=== PATIENT | female | born 1975 ===

== ENCOUNTER 2021-08-20 04:55 | Emergency (ER) | payer OTHER, SELFPAY ==
--- NOTE | 2021-08-20 | ECG_ITS ---
Test Reason : PALPATATIONS Blood Pressure : / mmHG Vent. Rate : 077 BPM Atrial Rate : 077 BPM P-R Int : 150 ms QRS Dur : 090 ms QT Int : 390 ms P-R-T Axes : 035 010 011 degrees QTc Int : 441 ms Normal sinus rhythm Cannot rule out Anterior infarct (cited on or before 30-SEP-2019) Abnormal ECG When compared with ECG of 30-SEP-2019 18:14, No significant change was found Referred By: Generic ED Physician Electronically Signed By:Alberto Patel
[2021-08-20 05:15] VITALS: BP 142/82; PULSE 78; RESP 16; TEMP 36.4; O2SAT 99; BMI 42.5
--- NOTE | 2021-08-20 05:58 | ED_ITS ---
HPI - General Adult General Chief complaint: Extremity Problem Stated complaint: leg and chest pain rapid heart rate Time Seen by Provider: 08/20/21 05:33 Source: patient Mode of arrival: ambulatory Limitations: no limitations History of Present Illness HPI narrative: Patient comes to the emergency room complaining of palpitations. Patient states that earlier today she had restless legs, started walking around her house and then notice that her heart rate was fast, had palpitations. Patient with her Fitbit watch on which showed a heart rate of 140. Patient states that by the time she arrived to the emergency room most of her symptoms had resolved. Patient denies any chest pain at this time, no shortness of breath. Related Data Allergies Allergy/AdvReac Type Severity Reaction Status Date / Time No Known Allergies Allergy Unverified 06/01/20 19:48 [No Known Allergies*] Review of Systems Review of Systems: Constitutional : No Weight loss, No Fever, No Chills, No Night Sweats, No Fatigue, No Malaise ENT/Mouth : No Hearing loss, No Ear Pain, No Nasal Congestion, No Sinus Pain, No Hoarseness, No sore throat, No Rhinorrhea, No Swallowing Difficulty Eyes: No Eye Pain, No Swelling, No Redness, No Foreign Body, No Discharge, No Vision Changes Cardiovascular : No Chest Pain, No SOB, No Dyspnea on Exertion, No Orthopnea, No Edema, complaining of Palpitations Respiratory : No Cough, No Sputum, No Wheezing, No Smoke Exposure, No Dyspnea Gastrointestinal : No Nausea, No Vomiting, No Diarrhea, No Constipation, No abdominal Pain, No Hematochezia, No Melena Genitourinary : no irregular bleeding, No Dysuria, No Urinary Frequency, No Hematuria, No Urinary Incontinence, No Urgency, No Flank Pain, No Urinary Flow Changes, No Hesitancy Musculoskeletal : No joint pain, No Myalgias, No Joint Swelling Skin : No Skin Lesions, No rash Neuro : No Weakness, No Numbness, No Paresthesias, No Loss of Consciousness, No Dizziness, No Headache Psych : No Anxiety/Panic, No Depression, No SI/HI/AH/VH, No Social Issues, Heme/Lymph: No Bruising, No Bleeding,No Lymphadenopathy Endocrine : No Polyuria, No Polydipsia, No Temperature Intolerance [facility], [facility] Social History Social History Advance Directives: No Advance Directives Information Provided: Yes Physical Exam Vital Signs: Vital Signs: Last Vital Signs Temp 97.6 F 08/20/21 05:15 Pulse 71 08/20/21 06:23 Resp 16 08/20/21 06:23 BP 132/76 08/20/21 06:23 Pulse Ox 98 08/20/21 06:23 BMI result Body Mass Index 42.5 Const: Other: Appearance: Alert. Oriented X3. No acute distress. Eyes: Pupils equal, round and reactive to light. ENT: Pharynx normal. Neck: Normal inspection. Neck supple. No lymph nodes noted. No crepitus CVS: Normal heart rate and rhythm. Pulses normal. Normal S1 and S2 Respiratory: No respiratory distress. Breath sounds normal. No Wheezing. No rales Abdomen: Soft and nontender. No rigidity. No distention. good BS x4 Skin: Skin warm and dry. Normal skin color. Normal skin turgor. Extremities: No lower extremity edema. No Lacerations. No Rash Neuro: Oriented X 3. No motor deficit. No sensory deficit. Moving all extermities. No slurred speech. Course Course Course Narrative: Chemistry pending. Anticipating home discharge. At this time, patient is asymptomatic, vitals stable. Sign out given to Dr. Goodson Medical Decision Making Lab Data Result diagrams: 08/20/21 06:27 08/20/21 06:27 Labs: Lab Results 08/20/21 Range/Units 06:27 WBC 5.9 (4.8-10.8) X10*3/uL RBC 4.32 (4.20-5.50) X10*6/uL Hgb 12.7 (12.0-16.0) g/dl Hct 39.1 (37.0-47.0) % MCV 90.5 (80.0-98.0) fL MCH 29.4 (27.0-33.0) pg MCHC 32.5 (31.0-35.0) g/dl RDW 12.8 (11.0-16.0) % Plt Count 223 (160-400) X10*3/uL MPV 9.7 (9.4-12.3) fL Immature Gran % (Auto) 0.3 (0.0-0.4) % Neut % (Auto) 70.7 (45-73) % Lymph % (Auto) 21.2 (20-40) % [place] % (Auto) 5.6 (2-11) % Eos % (Auto) 1.7 (0-4) % Baso % (Auto) 0.5 (0-2) % Lymph # (Auto) 1.2 (1.2-4.9) X10*3/uL [place] # (Auto) 0.3 (0.1-1.2) X10*3/uL Eos # (Auto) 0.1 (0.0-0.4) X10*3/uL Baso # (Auto) 0.0 (0.0-0.2) X10*3/uL Abs Immat Gran (auto) 0.02 (0.00-0.03) X10*3/uL Absolute Neuts (auto) 4.1 (2.0-8.3) x10*3/uL Absolute Nucleated RBC 0.000 (0.0-0.012) X10*3/uL Nucleated RBC % (auto) 0.0 (0.0-0.2) /100WBC Discharge Plan Discharge Clinical Impression: Heart palpitations
[2021-08-20 06:23] VITALS: BP 132/76; PULSE 71; RESP 16; O2SAT 98
[2021-08-20 06:32] LABS: MANUAL DIFF FLAG NO
[2021-08-20 06:34] LABS: Basophils Percent Auto 0.5 % (0-2); Eosinophils Absolute Auto 0.1 X10*3/uL (0.0-0.4); Eosinophils Percent Auto 1.7 % (0-4); Hematocrit 39.1 % (37.0-47.0); Hemoglobin 12.7 g/dl (12.0-16.0); Imm Gran Abs Auto 0.02 X10*3/uL (0.00-0.03); Imm Gran Pct Auto 0.3 % (0.0-0.4); Lymphocytes Absolute Auto 1.2 X10*3/uL (1.2-4.9); Lymphocytes Percent Auto 21.2 % (20-40); Mean Corpuscular HGB Conc 32.5 g/dl (31.0-35.0); Mean Corpuscular Hemoglobin 29.4 pg (27.0-33.0); Mean Corpuscular Volume 90.5 fL (80.0-98.0); Mean Platelet Volume 9.7 fL (9.4-12.3); Monocytes Absolute Auto 0.3 X10*3/uL (0.1-1.2); Monocytes Percent Auto 5.6 % (2-11); Neutrophils Absolute Auto 4.1 x10*3/uL (2.0-8.3); Neutrophils Percent Auto 70.7 % (45-73); Platelet Count 223 X10*3/uL (160-400); Red Blood Count 4.32 X10*6/uL (4.20-5.50); Red Cell Distribution Width 12.8 % (11.0-16.0); White Blood Count 5.9 X10*3/uL (4.8-10.8)
[2021-08-20 06:54] LABS: Troponin-I High Sensitivity < 3.5 ng/L (<3.5-17.0)
[2021-08-20 06:58] LABS: Alanine Aminotransferase 10 U/L (0-31); Albumin Level 4.1 g/dL (3.5-5.0); Alkaline Phosphatase 110 U/L (39-117); Anion Gap 11 (12-20); Aspartate Amino Transferase 8 U/L (5-31); Bilirubin Direct 0.2 mg/dL (0.0-0.5); Bilirubin Total 0.6 mg/dL (0.0-1.0); Blood Urea Nitrogen 13 mg/dL (9-16); Calcium 9.3 mg/dL (8.4-10.2); Carbon Dioxide 24 mmol/L (22-29); Chloride 109 mmol/L (96-108); Creatinine Clr Calc Pharmacy 111.6; Estimated Glomerular Filt Rate > 60; Glucose Random 111 mg/dL (60-115); Potassium 4.1 mmol/L (3.3-5.1); Sodium 140 mmol/L (135-145); Total Protein 7.1 g/dL (6.5-8.0)
[2021-08-20 07:03] LABS: HCG Quantitative < 2 mIU/mL
[2021-08-20 07:18] LABS: TSH reflex Free T4 0.73 uIU/mL (0.32-4.0)
== END 2021-08-20 07:20 | disposition home or self-care (01) ==
PROVIDERS: Emergency Medicine; Emergency Provider Emergency Medicine
DX: R00.2 Palpitations (principal)
CPT/HCPCS: 36415; 80048; 80076; 84443; 84484; 84702; 85025; 93005; 99283; 99284

== ENCOUNTER 2023-02-11 11:15 | Emergency (ER) | payer MEDICAID, SELFPAY ==
--- NOTE | ~2023-02-11 | US_ITS ---
EXAMINATION: US VENOUS ULTRASOUND WITH DOPPLER LOWER EXTREMITY, LEFT CLINICAL INFORMATION: Palpable pain, numbness. COMPARISON: None available. TECHNIQUE: Ultrasound of the deep veins is performed from the hip to the calf with compression sonography and color and pulse Doppler assessment. Spectral analysis with color-flow imaging is performed. FINDINGS: There is normal venous compression and respiratory variation and augmented flow. The visualized common femoral vein, superficial femoral vein, profunda femoral vein, popliteal vein, and the trifurcation region shows no evidence of deep venous thrombosis. There are multiple varicose patent main seen. There is no significant popliteal fossa cyst. If the patient's symptoms persist, followup ultrasound in 5 days 7 days might be of value to exclude proximal propagation from a non-visualized calf vein. US/US venous duplex LE IMPRESSION: No DVT demonstrated in the left lower extremity. Multiple patent varicosities left leg.
[2023-02-11 11:23] VITALS: BP 152/88; PULSE 78; RESP 18; TEMP 36.3; O2SAT 100; BMI 42.6
--- NOTE | 2023-02-11 11:23 | ED_ITS ---
HPI - General Adult General Chief complaint: Extremity Problem Stated complaint: L leg numbness/warmth Time Seen by Provider: 02/11/23 13:35 History of Present Illness HPI narrative: patient complains of warm tingly numb feeling going down the left leg but there is no loss of sensation there is no muscle weakness, she does get periodic back pain and sometimes the pain radiates from the gluteal muscle down her leg She denies actual pain in the back of the leg now denies any swelling in the leg no shortness of breath no chest pain no abdominal pain no vomiting no dysuria no changes to bowel or bladder Related Data Previous Rx's Medication Instructions Recorded ibuprofen 600 mg tablet 600 mg PO Q6H PRN pain #20 tabs 02/11/23 prednisone 20 mg tablet 60 mg PO DAILY 3 days #9 tabs 02/11/23 Allergies Allergy/AdvReac Type Severity Reaction Status Date / Time No Known Allergies Allergy Verified 02/11/23 11:22 [No Known Allergies*] [facility]LY [facility] Past Medical History Source: nursing notes reviewed Social History Social History Advance Directives: No Advance Directives Information Provided: Yes Physical Exam ED Vital Signs: Vital Signs - 24 hr 02/11/23 11:23 Temperature 97.4 F Pulse Rate 78 Respiratory Rate 18 Blood Pressure 152/88 H Pulse Oximetry 100 Oxygen Delivery Method Room Air BMI result Body Mass Index 42.6 General appearance no distress Head is normocephalic atraumatic Neck is supple respiratory no distress Abdomen soft nontender The back had left minor lower lumbar gluteal tenderness, had full painless range of motion, skin of the back was normal and there is no focal bony tenderness Extremities full range of motion x4 Gait and balance normal, motor 5/5 x4, sensation is intact and symmetrical in extremities Course Course Course Narrative: RME - 47 yo female with history of hypothyroidism presents to the ER for evaluation of worsening nontraumatic left lower extremity numbness and pain for the last 8 days. Reports the pain is behind the knee, worse with bending. She also end orses numbness of the left buttock and low back. No hx sciatica. Has extensive varicose veins on LLE, tender in the popliteal area. Steady gait. Plan: U/S LE to r/o DVT Ultrasound of left leg was negative, no DVT, there were some varicose veins Exam is consistent with paresthesias and tingling likely from a pinched nerve somewhere in the back as she gets intermittent back pain on that side at this time there is no neurologic deficit, strength and sensation are normal and intact gait is normal and patient is discharged to follow with primary care doctor comfortable and well-appearing Discharge Plan Discharge Clinical Impression: Paresthesia Patient Disposition: Home, Self-Care Additional Instructions: the numb feeling in her left leg is likely from a pinched nerve, possibly in her back sending the feeling down her leg There is no sign of any dangerous or worrisome condition now, this is a common thing We are trying prednisone for 3 days to see if it reduces inflammation around the nerve, otherwise anti-inflammatory Motrin will be helpful Follow with your doctor Return to the ER any time any worse condition or any concerns Prescriptions: New ibuprofen 600 mg tablet 600 mg PO Q6H PRN (Reason: pain) Qty: 20 0RF prednisone 20 mg tablet 60 mg PO DAILY 3 Days Qty: 9 0RF Interventions: ED Discharge Assessment Last Done: 02/11/23 14:08 Discharge Date/Time: 02/11/23 14:09
== END 2023-02-11 14:09 | disposition home or self-care (01) ==
PROVIDERS: Emergency Provider Emergency Medicine; PCP Student in an Organized Health Care Education/Training Program
DX: R20.2 Paresthesia of skin (principal); M79.605 Pain in left leg
CPT/HCPCS: 93971; 99282; 99284

== ENCOUNTER 2023-10-01 12:06 | Inpatient (IN) | payer MEDICAID, SELFPAY ==
--- NOTE | ~2023-10-01 | CT_ITS ---
EXAMINATION: CT HEAD WITHOUT CONTRAST CLINICAL INFORMATION: Ascending paresthesias. Question mass effect, stroke, bleed. COMPARISON: None available. TECHNIQUE: Contiguous axial imaging was performed from the skull base to vertex without intravenous administration of contrast. This CT examination was performed using dose optimization techniques as appropriate, variously including the following: *Automated exposure control *Adjustment of mA and/or kV according to patient size (this includes techniques or standardized protocols for targeted exams where dose is matched to indication/reason for exam; i.e. extremities or head) *Use of iterative reconstruction technique DLP: 697 mGy-cm FINDINGS: There is no acute intra-axial axial, extra-axial bleed, masses or midline shift. No acute infarction in evolution. There is no edema. The chandler to white matter differentiation is maintained normal. The lateral ventricles are symmetrical in size and configuration without enlargement. There is a punctate calcification in right occipital lobe adjacent in the right tentorium without mass effect. Bone windows reveal no calvarial abnormality. No scalp soft tissue abnormality seen. There is mild mucoperiosteal thickening in bilateral maxillary sinuses. Rest of the paranasal sinuses and mastoid air cells are well-aerated. CT/CT head/brain wo IV con IMPRESSION: No acute intracranial process seen.
--- NOTE | ~2023-10-01 | MR_ITS ---
EXAMINATION: MR THORACIC SPINE WITHOUT AND WITH CONTRAST CLINICAL INFORMATION: Ascending paresthesias, rule out multiple sclerosis (MS). COMPARISON: None available. TECHNIQUE: MRI of the thoracic spine was obtained using routine sequences with and without contrast. Intravenous contrast: Gadavist 10 mL. FINDINGS: Mild dextrocurvature of the thoracic spine with apex at T7-T8. Preservation of the normal thoracic kyphosis. No listhesis. No abnormal bone marrow signal or enhancement. The vertebral body heights are preserved. Multilevel disc desiccation without significant disc height loss. Multilevel endplate osteophytosis. The visualized spinal cord is normal in caliber. There is a focus of T2/STIR hyperintensity involving the posterior aspect of the cord at the level of T2-T3. This focus demonstrates no corresponding enhancement. It occupies less than 50% and less than one vertebral body height of the cord. No associated cord expansion. No other site of abnormal cord signal or enhancement. The conus medullaris terminates at L1-L2. There are disc bulges at T7-T8 through T11-T12 with the most prominent one at T9-T10. There is mass effect on the thecal sac without significant spinal canal stenosis at T9-T10. Mild neural foraminal narrowing bilaterally at T10-T11. Ligamentum flavum hypertrophy at T3-T4 and T4-T5. No other sites of significant disc herniation, spinal canal stenosis, or neural foraminal narrowing. The paravertebral soft tissues are unremarkable. The visualized intrathoracic and intra-abdominal structures are grossly unremarkable. MR/MR thoracic spine wo/w con IMPRESSION: -Nonenhancing T2/STIR hyperintense focus at the posterior aspect of the cord at T2-T3 concerning for demyelinating plaque. -Multilevel degenerative disc disease without significant spinal canal stenosis or neural foraminal narrowing.
--- NOTE | ~2023-10-01 | MR_ITS ---
EXAMINATION: MR BRAIN AND CERVICAL SPINE WITHOUT AND WITH CONTRAST CLINICAL INFORMATION: Ascending paresthesias. Rule out MS. COMPARISON: Head CT 10/01/2023. TECHNIQUE: Multiplanar, multisequence imaging of the brain and cervical spine was performed before and after the intravenous administration of 10 mL of Gadavist. FINDINGS: Brain: A few small foci of T2/FLAIR hyperintensity are seen within the periventricular and deep cerebral white matter, a few which are perpendicular to the callosal septal interface best seen on series 4 image . No abnormal enhancement is seen. There is no acute or chronic infarction, hemorrhage, mass, or extra-axial fluid collection. There is no hydrocephalus. The major arterial flow voids are preserved at the skull base. The orbital contents appear grossly normal. Cervical spine: There is abnormal T2 hyperintense signal abnormality within the dorsal cord extending from the C2 through upper C5 level. There is small area of enhancement within the signal abnormality centered at the C3 level. There is T2 hyperintensity and volume loss involving the right cord at the C5-C6 level. Additional T2 hyperintensity is seen within the central cord at T2-T3. The vertebral bodies demonstrate normal heights and alignment. There is mild disc height loss. C2-C3: Small central protrusion. C3-C4: Small central protrusion. Mild spinal canal stenosis. C4-C5: Disc bulging and mild uncovertebral hypertrophy resulting in moderate right and mild left neural foraminal stenosis. Mild spinal canal stenosis. C5-C6: Disc osteophyte complex with uncovertebral hypertrophy resulting in severe spinal canal stenosis with cord deformity. Uncovertebral hypertrophy resulting in mild bilateral neural foraminal stenosis. C6-C7: Disc bulging with uncovertebral hypertrophy and central protrusion resulting in mild to moderate spinal canal stenosis and mild bilateral neural foraminal stenosis. The extraspinal soft tissues appear normal. MR/MR cervical spine wo/w con IMPRESSION: BRAIN: Several small scattered foci of T2/FLAIR hyperintensity are seen within the supratentorial white matter, compatible with demyelinating plaques. No enhancing/active plaques are seen. No mass or acute abnormality. CERVICAL SPINE: 1. Confluent T2 hyperintense plaque within the dorsal cord extending from the C2 through upper C5 level with small associated enhancement compatible with active demyelination. Additional plaque seen at C5-C6 and T2-T3. 2. At C5-C6 there is severe spinal canal stenosis related to disc osteophyte complex and uncovertebral hypertrophy. At C6-C7 there is mild to moderate spinal canal stenosis.
[2023-10-01 12:22] VITALS: BP 175/91; PULSE 99; RESP 20; TEMP 36.8; O2SAT 99; BMI 42.6
--- NOTE | 2023-10-01 12:23 | ED.GENADULT ---
HPI - General Adult General Chief complaint: Neuro Symptoms/Deficit Stated complaint: Numbing Sensation All Over Time Seen by Provider: 10/01/23 16:27 History of Present Illness HPI narrative: 47-year-old female history of hypertension, hypothyroidism and vitamin-D deficiency-resolved with supplement who presents emergency department for evaluation of ascending paresthesias x4 days. The patient states she did a Vincent class 4 days prior and after the class she noted numbness in her toes. She states that since then the numbness his spread up her body to just below her ribcage. States that she is now developing numbness in her left arm. She describes the numbness is a pins and needle sensation. She denies any weakness. She states she is also felt fatigued but denies any other symptoms. She has not had any infectious/viral symptoms such as fever, chills, rhinorrhea, sore throat, chest pain, cough, nausea, vomiting, diarrhea arthralgias. She states she did receive a COVID-19 vaccine 2 months prior. Related Data Home Medications Medication Instructions Recorded Confirmed cholecalciferol (vitamin D3) 125 125 mcg PO DAILY 10/01/23 10/01/23 mcg (5,000 unit) tablet levothyroxine 175 mcg tablet 175 mcg PO DAILY 10/01/23 10/01/23 lisinopril 5 mg tablet 5 mg PO DAILY 10/01/23 10/01/23 Allergies Allergy/AdvReac Type Severity Reaction Status Date / Time No Known Allergies Allergy Verified 10/01/23 12:27 [No Known Allergies*] Review of Systems Review of Systems: Yes all other systems are reviewed and are negative [facility] Past Medical History [facility] Narrative: Past medical history: Hypertension, hypothyroidism, vitamin-D deficiency-resolved. Social history: She denies tobacco use. She rarely drinks alcohol. She denies drug use Onset Date is defined in the Problem List Problems that require an onset date and time if occurred within 24 hrs of arrival to the ED Aortic Dissection and Rupture; Neurologic impairment; Cardiopulmonary Arrest; Endotracheal Intubation; Insertion or Replacement of Mechanical Circulatory Assist Device Medical History Morbid obesity Hypothyroidism HTN (hypertension) Social History Social History Advance Directives: No Advance Directives Information Provided: No Physical Exam ED Vital Signs: Vital Signs - 24 hr 10/01/23 12:22 10/01/23 14:40 Temperature 98.2 F 97.0 F Pulse Rate 99 96 Respiratory Rate 20 20 Blood Pressure 175/91 H 184/98 H Pulse Oximetry 99 100 Oxygen Delivery Method Room Air Room Air BMI result Body Mass Index 42.6 Vital signs revealed an elevated respiratory rate of 20 and elevated blood pressure of 175/91 Exam General: Awake, alert in no distress, elevated BMI 42.6 Head: Normocephalic, atraumatic EENT: PERRL, Lids normal, sclera normal, conjunctiva normal, nose normal , ears normal, throat without erythema or exudates Neck: Supple, no adenopathy, no trachea midline or C-spine tenderness Lung: breath sounds symmetric, no wheezing, rales or rhonchi Chest: symmetric movement, nontender Heart: regular rate and rhythm, normal S1, S2 no murmurs or rubs Abdomen: soft, non-tender, nondistended, normal bowel sounds Back: no vertebral tenderness, no CVAT Extremities: no deformities, moves all extremities symmetrically Neuro: General: Awake, alert, oriented to person and place, normal speech Cranial nerves: Cranial nerves 2-12 are intact Strength: 5/5 and symmetric Reflexes: 2+ and symmetric Cerebellar: Normal [id number]-[id number]-finger, rapid finger movement, normal gait Sensory: Decreased light touch to the lower extremities, abdomen to just below the chest, decreased light touch in the left upper extremity compared to the right upper extremity Psych: Pleasant, cooperative Course Course Course Narrative: RME:?47 yo female hx of hypothyroid and HTN, here w/ numbness in toes x3 days, now moving up LEs and into fingers. worse with laying down. took tylenol and motrin w/o relief. denies new medications, recent vaccinations. no hx of diabetes. denies chest pain, SOB or vision changes. ambulating w/ steady gait. sensation intact throughout. 2+ patellar dtrs intact. exam nonfocal. plan for labs Full HPI, ROS and PE to be performed by the primary ED provider. Procedures Lumbar Puncture Time Out Performed: No Patient Position: left lateral decubitus Skin Prep: Povidone-Iodine 1% Local Anesthetic: lidocaine 1% Amount of anesthesia used (mL): 3 Spinal Needle Gauge: 20G Interspace Used: L4-L5 Complications: unable to obtain CSF Additional Comments: I will unsuccessful obtaining spinal fluid and my colleague, Dr. Carballo was also unsuccessful. We both felt that we are in the right location who out of been long enough to obtain spinal fluid. Medical Decision Making Medical Decision Making [facility] Narrative: 47-year-old female history of hypertension, hypothyroidism and vitamin-D deficiency-resolved with supplement who presents emergency department for evaluation of ascending paresthesias x4 days. The paresthesias began in her feet and have progressed of her body to just below the chest and also involves the left arm but spares the right arm. Patient's neurologic exam did reveal diminished light touch in these areas but normal strength and normal reflexes. Following evaluation was ordered: CBC, CMP, CK, B12, folate, lipase, magnesium, TSH, CRP, ESR, CK, CT of the brain without IV contrast My interpretation patient's laboratory evaluation is as follows: CBC was normal. ESR was normal. CMP was normal magnesium was normal. CK was normal. CRP was normal. TSH was normal. B12 and folate were normal. I did discuss this patient's presentation the covering neurologist, Dr. Franklin. We did discuss [place] versus transverse myelitis is the cause the patient's symptoms. He recommended CT scan of the brain without IV contrast and lumbar puncture. Unfortunately, I was unsuccessful in trying to obtain spinal my colleague, Dr. Carballo was also unsuccessful. We both felt that we were in the right spot however the 2.5 in spinal needle was inserted to the hub several times without getting any spinal fluid. Patient's presentation was discussed with the covering hospitalist, Dr. Harden and the patient will be admitted for lumbar IR and urology consult to further determine the cause of her ascending paresthesias Differential Diagnosis Differential Diagnoses: The differential diagnosis associated with the presentation includes Differential diagnosis includes was not limited to [place]illain[place] syndrome, transverse myelitis, electrolyte abnormalities, B12 deficiency, folate deficiency, magnesium deficiency Admission/Observation Consideration of admission/observation: Escalation of care including admission/observation considered Consult Healthcare Provider Management of the patient was discussed with: Hospitalist Lab Data [facility] Lab Attestation statement: I reviewed the patient's lab results. 10/01/23 12:55 10/01/23 12:55 Labs: Lab Results 10/01/23 Range/Units 12:55 WBC 6.6 (4.8-10.8) X10*3/uL RBC 4.47 (4.20-5.50) X10*6/uL Hgb 13.0 (12.0-16.0) g/dl Hct 39.8 (37.0-47.0) % MCV 89.0 (80.0-98.0) fL MCH 29.1 (27.0-33.0) pg MCHC 32.7 (31.0-35.0) g/dl RDW 12.7 (11.0-16.0) % Plt Count 243 (160-400) X10*3/uL MPV 9.7 (9.4-12.3) fL Immature Gran % (Auto) 0.5 H (0.0-0.4) % Neut % (Auto) 62.5 (45-73) % Lymph % (Auto) 29.7 (20-40) % [place] % (Auto) 5.0 (2-11) % Eos % (Auto) 1.7 (0-4) % Baso % (Auto) 0.6 (0-2) % Lymph # (Auto) 2.0 (1.2-4.9) X10*3/uL [place] # (Auto) 0.3 (0.1-1.2) X10*3/uL Eos # (Auto) 0.1 (0.0-0.4) X10*3/uL Baso # (Auto) 0.0 (0.0-0.2) X10*3/uL Abs Immat Gran (auto) 0.03 (0.00-0.03) X10*3/uL Absolute Neuts (auto) 4.1 (2.0-8.3) x10*3/uL Absolute Nucleated RBC 0.000 (0.0-0.012) X10*3/uL Nucleated RBC % (auto) 0.0 (0.0-0.2) /100WBC ESR 2 (0-20) MM/HR Sodium 141 (135-145) mmol/L Potassium 3.6 (3.3-5.1) mmol/L Chloride 106 (96-108) mmol/L Carbon Dioxide 29 (22-29) mmol/L Anion Gap 10 L (12-20) BUN 9 (9-16) mg/dL Creatinine 0.84 (0.5-1.4) mg/dL Estim Creat Clear Calc 102.8 Estimated GFR > 60 Random Glucose 98 (60-115) mg/dL Calcium 9.2 (8.4-10.2) mg/dL Magnesium 2.0 (1.6-2.6) mg/dL Total Bilirubin 0.6 (0.0-1.0) mg/dL AST 7 (5-31) U/L ALT 8 (0-31) U/L Alkaline Phosphatase 95 (39-117) U/L Total Creatine Kinase 40 (26-140) U/L C-Reactive Protein < 0.10 (< or = 0.50) mg/dL Total Protein 7.3 (6.5-8.0) g/dL Albumin 4.1 (3.5-5.0) g/dL Lipase 23 (8-78) U/L TSH 0.61 (0.32-4.0) uIU/mL Radiology Impression Discussion of test interpretation with radiology: I have reviewed the radiologist's reading. Radiologist Impression: CT head/brain wo IV con IMPRESSION: No acute intracranial process seen. Dictated By: Jin Ritchie MD Independent Historian Clinical information obtained from an independent historian. History obtained from or confirmed by: Spouse Discharge Plan Discharge Clinical Impression: Paresthesia Patient Disposition: Admitted As Inpatient
[2023-10-01 12:59] LABS: MANUAL DIFF FLAG NO
[2023-10-01 13:01] LABS: Basophils Percent Auto 0.6 % (0-2); Eosinophils Absolute Auto 0.1 X10*3/uL (0.0-0.4); Eosinophils Percent Auto 1.7 % (0-4); Hematocrit 39.8 % (37.0-47.0); Imm Gran Abs Auto 0.03 X10*3/uL (0.00-0.03); Imm Gran Pct Auto 0.5 % (0.0-0.4); Lymphocytes Percent Auto 29.7 % (20-40); Mean Corpuscular HGB Conc 32.7 g/dl (31.0-35.0); Mean Corpuscular Hemoglobin 29.1 pg (27.0-33.0); Mean Platelet Volume 9.7 fL (9.4-12.3); Monocytes Absolute Auto 0.3 X10*3/uL (0.1-1.2); Neutrophils Absolute Auto 4.1 x10*3/uL (2.0-8.3); Neutrophils Percent Auto 62.5 % (45-73); Platelet Count 243 X10*3/uL (160-400); Red Blood Count 4.47 X10*6/uL (4.20-5.50); Red Cell Distribution Width 12.7 % (11.0-16.0); White Blood Count 6.6 X10*3/uL (4.8-10.8)
[2023-10-01 13:21] LABS: Alanine Aminotransferase 8 U/L (0-31); Albumin Level 4.1 g/dL (3.5-5.0); Alkaline Phosphatase 95 U/L (39-117); Anion Gap 10 (12-20); Aspartate Amino Transferase 7 U/L (5-31); Bilirubin Total 0.6 mg/dL (0.0-1.0); Blood Urea Nitrogen 9 mg/dL (9-16); Calcium 9.2 mg/dL (8.4-10.2); Carbon Dioxide 29 mmol/L (22-29); Chloride 106 mmol/L (96-108); Creatinine Clr Calc Pharmacy 102.8; Estimated Glomerular Filt Rate > 60; Glucose Random 98 mg/dL (60-115); Lipase 23 U/L (8-78); Potassium 3.6 mmol/L (3.3-5.1); Sodium 141 mmol/L (135-145); Total Protein 7.3 g/dL (6.5-8.0)
[2023-10-01 13:35] LABS: TSH reflex Free T4 0.61 uIU/mL (0.32-4.0)
[2023-10-01 14:40] VITALS: BP 184/98; PULSE 96; RESP 20; TEMP 36.1; O2SAT 100
[2023-10-01 17:29] LABS: C Reactive Protein < 0.10 mg/dL (< or = 0.50)
[2023-10-01 18:15] LABS: Erythrocyte Sedimentation Rate 2 MM/HR (0-20)
--- NOTE | 2023-10-01 19:35 | P.HPHOSP_ITS ---
History of Present Illness Date of Service: 10/01/23 Attending physician on admission: Camilla Harden Chief Complaint: numbness 47 pyear old female with history of hypothyroidism, htn, who id morbidly obese with BMI >42 presented to the ED earlier today for evaluation of numbness and tingling that started in her toes about 4 days ago after a [place] class. Since then the paresthesias have beens ascending up the legs bilaterally now on the abdomen. Earlier she began experiencing the sensation in the LUE. Paresthesias have otherwise been symmetric. She report chronic intermittent R-sided paraspinal low back pain. Reports having paresthesias in the LLE several years ago that responded well to prednisone. Denies any known injury. No bowel/bladder dysfunction. No weakness. On arrival, VSS. Hematology studies unremarkable. Renal function/lytes normal. CRP WNL. Total CK WNL. TSH WNL. Head CT unremarkable. Several attempts were made at LP but were unsuccessful. She did have COVID-19 booster about 2 months ago but no other recent vaccines. Denies any recent illness/URI. Case discussed with neurology recommending admission for further work up. Review of Systems 2 Review of Systems: General: No fevers, malaise, unintentional weight loss HEENT: No blurred vision, diplopia. No sore throat, nasal congestion, rhinorrhea, sinus pain, ear pain Cardiovascular: No chest pain, palpitations, or leg edema Respiratory: No shortness of breath, wheezing, cough GI: No abdominal pain, nausea, vomiting, diarrhea : No dysuria, hematuria, increased urinary frequency MSK: No myalgia, back pain Neuro: No headaches, weakness. +paresthesias Skin: No rashes or lesions [facility] Medical History Morbid obesity Hypothyroidism HTN (hypertension) Social History Advance Directives: No Advance Directives Information Provided: No Meds Allergies Allergy/AdvReac Type Severity Reaction Status Date / Time No Known Allergies Allergy Verified 10/01/23 12:27 [No Known Allergies*] Active Medications: Current Medications Acetaminophen (Acetaminophen 325 Mg Tablet) 650 mg PO Q6H PRN PRN Reason: Pain, Mild (Pain Scale 1-3) Enoxaparin Sodium (Enoxaparin Sodium 40 Mg/0.4 Ml Syringe) 40 mg SUBCUT Q24H [facility] Melatonin (Melatonin 3 Mg Tablet) 6 mg PO BEDTIME PRN PRN Reason: Insomnia Ondansetron HCl (Ondansetron Hcl 4 Mg/2 Ml Vial) 4 mg IVPUSH Q8H PRN PRN Reason: Nausea and Vomiting Sodium Chloride (0.9 % Sodium Chloride Flush 3 Ml Syringe) 3 ml IVFLUSH QSHIFT [facility] Home Medications Medication Instructions Recorded Confirmed Last Taken Type cholecalciferol (vitamin D3) 125 125 mcg PO DAILY 10/01/23 10/01/23 10/01/23 History mcg (5,000 unit) tablet levothyroxine 175 mcg tablet 175 mcg PO DAILY 10/01/23 10/01/23 10/01/23 History lisinopril 5 mg tablet 5 mg PO DAILY 10/01/23 10/01/23 10/01/23 History Physical Exam 2 Vital Signs and Narrative: Vital Signs: Last Vital Signs Temp 97.0 F 10/01/23 14:40 Pulse 96 10/01/23 14:40 Resp 20 10/01/23 14:40 BP 184/98 H 10/01/23 14:40 Pulse Ox 100 10/01/23 14:40 O2 Del Method Room Air 10/01/23 14:40 BMI result Body Mass Index 42.6 Constitutional - Awake and Alert, No apparent distress Eyes - PERRLA, EOMI Cardiovascular - S1S2, RRR, No edema Respiratory - Normal lung expansion, Normal respiratory effort, No respiratory distress, CTA bilaterally Gastrointestinal - NT / ND; +BS; No rebound or guarding Extremities - no calf tenderness bilaterally, no swelling Musculoskeletal - Normal inspection, normal ROM. No midline back ttp Skin - Warm/Dry Neurological - Alert & oriented x3, CN II-XII in tact, 5/5 strength BUE and BLE. Decreased sensation legs bilaterally and abd. 2+ patellar reflexes, downgoing babinski Psychological - Appropriate affect Results Labs 10/01/23 12:55 10/01/23 12:55 Labs: Laboratory Results - last 24 hr 10/01/23 12:55 MCV 89.0 MCH 29.1 MCHC 32.7 RDW 12.7 Plt Count 243 MPV 9.7 Immature Gran % (Auto) 0.5 H Neut % (Auto) 62.5 Lymph % (Auto) 29.7 [place] % (Auto) 5.0 Eos % (Auto) 1.7 Baso % (Auto) 0.6 Lymph # (Auto) 2.0 [place] # (Auto) 0.3 Eos # (Auto) 0.1 Baso # (Auto) 0.0 Abs Immat Gran (auto) 0.03 Absolute Neuts (auto) 4.1 Absolute Nucleated RBC 0.000 Nucleated RBC % (auto) 0.0 ESR 2 Anion Gap 10 L Estim Creat Clear Calc 102.8 Estimated GFR > 60 Random Glucose 98 Calcium 9.2 Magnesium 2.0 Total Bilirubin 0.6 AST 7 ALT 8 Alkaline Phosphatase 95 Total Creatine Kinase 40 C-Reactive Protein < 0.10 Total Protein 7.3 Albumin 4.1 Lipase 23 TSH 0.61 Imaging Radiologist's Impressions: Impressions Head CT 10/01/23 17:27 IMPRESSION: No acute intracranial process seen. Assessment and Plan (1) Paresthesia: Status: Acute Plan 47 pyear old female with history of hypothyroidism, htn, who id morbidly obese with BMI >42 to be observed for ascending paresthesias #Ascending symmetric paresthesias -Head CT negative. No recent illness. Last vaccine (covid booster) 2 months ago -Head CT negative -?Mee barre vs transverse myelitis vs peripheral neuropathy -IR fl guided LP -Defer further imaging with MRI to neuro -neuro consult #HTN -bp reasonably controlled -continue lisinopril 5mg #Hypothyroidism -TSH WNL -continue synthroid DVT prophylaxis- SCPs Full code Quality Stroke Does the patient have a stroke diagnosis?: No VTE Prior VTE?: No VTE Risk Level:: Medical - moderate - high VTE Device Contraindication: Treatment Not Indicated VTE Drug Contraindication: N/A - Med Ordered
--- NOTE | 2023-10-01 20:00 | PC.NURSE ---
This singer songwriter assumed care of this Pt at 1900. Pt A&Ox4, denies any pain, reports left arm numbness, Pt able to move all extremities. IV line placed, Pt tolerated well.
[2023-10-01 20:14] VITALS: BP 143/85; PULSE 78; RESP 16; TEMP 36.9; O2SAT 100
[2023-10-01 20:59] LABS: Folate 7.4 ng/mL (> or = 4.0); Vitamin B12 234 pg/mL (200-900)
--- NOTE | 2023-10-01 22:46 | PHA.MEDREC ---
Pharmacy Consult ? Medication Reconciliation Pharmacy has completed the medication reconciliation.Patient reported medications. Melody Anton CPhT
--- NOTE | 2023-10-01 23:25 | PC.NURSE ---
Pt ambulated independently with steady gait to BR.
[2023-10-01 23:31] VITALS: BP 126/81; PULSE 65; RESP 18; TEMP 36.9; O2SAT 100
--- NOTE | 2023-10-01 23:34 | MHC.EDTECH ---
This tech took over care pf patient at 2215,hourly rounds and vitals completed, patient is resting comfortably at this time and call gonzalez in reach
[2023-10-01] MEDS: 0.9 % Sodium Chloride Flush 3 ML SYRINGE IVFLUSH (23:46)
[2023-10-02] VITALS (7 sets, daily range): BP systolic 123–152; BP diastolic 62–90; PULSE 63–73; RESP 18–20; TEMP 36.2–37.1; O2SAT 97–100
--- NOTE | 2023-10-02 01:42 | MHC.EDTECH ---
Hourly rounds completed,patient ambulated with a steady gait to the bathroom, patient is resting at this time and call gonzalez in reach.
--- NOTE | 2023-10-02 04:24 | MHC.EDTECH ---
Hourly rounds and vitals completed, patient is resting and is comfortable at this time,call gonzalez in reach
[2023-10-02 05:50] LABS: MANUAL DIFF FLAG NO
[2023-10-02 05:54] LABS: Basophils Percent Auto 0.4 % (0-2); Eosinophils Absolute Auto 0.1 X10*3/uL (0.0-0.4); Eosinophils Percent Auto 0.8 % (0-4); Hematocrit 37.8 % (37.0-47.0); Hemoglobin 12.3 g/dl (12.0-16.0); Imm Gran Abs Auto 0.01 X10*3/uL (0.00-0.03); Imm Gran Pct Auto 0.1 % (0.0-0.4); Lymphocytes Absolute Auto 2.3 X10*3/uL (1.2-4.9); Lymphocytes Percent Auto 31.4 % (20-40); Mean Corpuscular HGB Conc 32.5 g/dl (31.0-35.0); Mean Corpuscular Hemoglobin 28.9 pg (27.0-33.0); Mean Corpuscular Volume 88.9 fL (80.0-98.0); Mean Platelet Volume 10.2 fL (9.4-12.3); Monocytes Absolute Auto 0.4 X10*3/uL (0.1-1.2); Monocytes Percent Auto 5.7 % (2-11); Neutrophils Absolute Auto 4.5 x10*3/uL (2.0-8.3); Neutrophils Percent Auto 61.6 % (45-73); Platelet Count 227 X10*3/uL (160-400); Red Blood Count 4.25 X10*6/uL (4.20-5.50); Red Cell Distribution Width 12.7 % (11.0-16.0); White Blood Count 7.3 X10*3/uL (4.8-10.8)
[2023-10-02 06:10] LABS: Anion Gap 12 (12-20); Blood Urea Nitrogen 8 mg/dL (9-16); Calcium 9.2 mg/dL (8.4-10.2); Carbon Dioxide 25 mmol/L (22-29); Chloride 108 mmol/L (96-108); Creatinine Clr Calc Pharmacy 112.1; Estimated Glomerular Filt Rate > 60; Glucose Random 86 mg/dL (60-115); Potassium 3.7 mmol/L (3.3-5.1); Sodium 141 mmol/L (135-145)
[2023-10-02] MEDS: Levothyroxine Sodium 175 MCG TABLET PO (06:18)
--- NOTE | 2023-10-02 06:20 | PC.NURSE ---
Pt ambulated independently to BR with steady gait. Reports no change in tingling/numbness to left hand and bilateral feet.
[2023-10-02] MEDS: Acetaminophen 325 MG TABLET 650 MG PO ×3 (06:25→19:53)
[2023-10-02] MEDS: lisinopriL 5 MG TABLET PO (08:56)
[2023-10-02] MEDS: Cholecalciferol (Vitamin D3) 25 MCG TABLET 125 MCG PO (08:56)
[2023-10-02] MEDS: 0.9 % Sodium Chloride Flush 3 ML SYRINGE IVFLUSH ×3 (08:56→19:51)
[2023-10-02 09:21] LABS: INTERNATIONAL NORM RATIO 0.9 (0.9-1.1); Prothrombin Time 11.4 SEC (11.1-13.3)
[2023-10-02 09:24] LABS: Partial Thromboplastin Time 30.5 SEC (26.0-36.4)
--- NOTE | 2023-10-02 09:49 | P.PNIM_ITS ---
Subjective Subjective Date of Service: 10/02/23 Interval History: Seen in follow up for ascending paresthesias Interval history Seen and examined, no overnight events. Still with paresthesias ble, abd, lue. no weakness Review of Systems Review of Systems: Yes all other systems are reviewed and are negative Physical Exam 2 Vital Signs: Vital Signs: Last Vital Signs Temp 97.1 F 10/02/23 09:17 Pulse 73 10/02/23 09:17 Resp 20 10/02/23 09:17 BP 149/88 H 10/02/23 09:17 Pulse Ox 100 10/02/23 09:17 O2 Del Method Room Air 10/02/23 09:17 BMI result Body Mass Index 42.6 Constitutional - Awake and Alert, No apparent distress Eyes - PERRLA, EOMI Cardiovascular - S1S2, RRR, No edema Respiratory - Normal lung expansion, Normal respiratory effort, No respiratory distress, CTA bilaterally Gastrointestinal - NT / ND; +BS; No rebound or guarding Extremities - no calf tenderness bilaterally, no swelling Musculoskeletal - Normal inspection, normal ROM Skin - Warm/Dry Neurological - Alert & oriented x3, 5/5 strength BUE and BLE, decreased sensation LUE and bLE Psychological - Appropriate affect Objective Data Active Medications Acetaminophen (Acetaminophen 325 Mg Tablet) 650 mg PO Q6H PRN PRN Reason: Pain, Mild (Pain Scale 1-3) Last Admin: 10/02/23 06:25 Dose: 650 mg Documented By: GILLIAN Levothyroxine Sodium (Levothyroxine Sodium 175 Mcg Tablet) 175 mcg PO DAILY@0600 [facility] Last Admin: 10/02/23 06:18 Dose: 175 mcg Documented By: GILLIAN Lisinopril (Lisinopril 5 Mg Tablet) 5 mg PO DAILY [facility]; Protocol Last Admin: 10/02/23 08:56 Dose: 5 mg Documented By: ANAM Melatonin (Melatonin 3 Mg Tablet) 6 mg PO BEDTIME PRN PRN Reason: Insomnia Ondansetron HCl (Ondansetron Hcl 4 Mg/2 Ml Vial) 4 mg IVPUSH Q8H PRN PRN Reason: Nausea and Vomiting Sodium Chloride (0.9 % Sodium Chloride Flush 3 Ml Syringe) [facility] Last Admin: 10/02/23 08:56 Dose: 3 ml Documented By: ANAM Vitamin D (Cholecalciferol (Vitamin D3) 25 Mcg Tablet) 125 mcg PO DAILY JONG Last Admin: 10/02/23 08:56 Dose: 125 mcg Documented By: ANAM Labs 10/02/23 05:04 10/02/23 05:04 Labs: Laboratory Results - last 24 hr 10/01/23 10/01/23 10/02/23 12:55 19:59 05:04 MCV 89.0 88.9 MCH 29.1 28.9 MCHC 32.7 32.5 RDW 12.7 12.7 Plt Count 243 227 MPV 9.7 10.2 Immature Gran % (Auto) 0.5 H 0.1 Neut % (Auto) 62.5 61.6 Lymph % (Auto) 29.7 31.4 [place] % (Auto) 5.0 5.7 Eos % (Auto) 1.7 0.8 Baso % (Auto) 0.6 0.4 Lymph # (Auto) 2.0 2.3 [place] # (Auto) 0.3 0.4 Eos # (Auto) 0.1 0.1 Baso # (Auto) 0.0 0.0 Abs Immat Gran (auto) 0.03 0.01 Absolute Neuts (auto) 4.1 4.5 Absolute Nucleated RBC 0.000 0.000 Nucleated RBC % (auto) 0.0 0.0 ESR 2 PT INR APTT Anion Gap 10 L 12 Estim Creat Clear Calc 102.8 112.1 Estimated GFR > 60 > 60 Random Glucose 98 86 Calcium 9.2 9.2 Magnesium 2.0 Total Bilirubin 0.6 AST 7 ALT 8 Alkaline Phosphatase 95 Total Creatine Kinase 40 C-Reactive Protein < 0.10 Total Protein 7.3 Albumin 4.1 Lipase 23 Vitamin B12 234 Folate 7.4 TSH 0.61 10/02/23 09:08 MCV MCH MCHC RDW Plt Count MPV Immature Gran % (Auto) Neut % (Auto) Lymph % (Auto) [place] % (Auto) Eos % (Auto) Baso % (Auto) Lymph # (Auto) [place] # (Auto) Eos # (Auto) Baso # (Auto) Abs Immat Gran (auto) Absolute Neuts (auto) Absolute Nucleated RBC Nucleated RBC % (auto) ESR PT 11.4 INR 0.9 APTT 30.5 Anion Gap Estim Creat Clear Calc Estimated GFR Random Glucose Calcium Magnesium Total Bilirubin AST ALT Alkaline Phosphatase Total Creatine Kinase C-Reactive Protein Total Protein Albumin Lipase Vitamin B12 Folate TSH Assessment and Plan (1) Transverse myelitis: Status: Acute (2) Paresthesia: Status: Acute Plan 47 pyear old female with history of hypothyroidism, htn, who id morbidly obese with BMI >42 to be observed for ascending paresthesias #Ascending symmetric paresthesias concerning for transverse myelitis, [facility] consider MS per neurology -Head CT negative. No recent illness. Last vaccine (covid booster) 2 months ago -Head CT negative -IR fl guided LP -Per neuro: MRI brain/cervical spine/thoracic spine w/wo contrast -neuro input appreciated #HTN -bp reasonably controlled -continue lisinopril 5mg #Hypothyroidism -TSH WNL -continue synthroid DVT prophylaxis- SCPs Full code Pt requires inpt stay at least 2 midnights due to new onset neurological deficits with further work up ongoing and requiring expert consultation Quality Stroke Does the patient have a stroke diagnosis?: No VTE Prior VTE?: No VTE Risk Level:: Medical - moderate - high VTE Device Contraindication: Treatment Not Indicated VTE Drug Contraindication: N/A - Med Ordered
--- OUTSIDE RECORDS SUMMARY | 2023-10-02 11:13 | XMS_ITS | Continuity of Care Document ---
Author Name Unknown Organization [facility] Address [address] [place] [id number]- Care Team Providers Care Stain Dipper Name Role Phone Israel Romero MD Primary Care Physician Encounter [facility] [place] [facility] [place] Date(s): 10/18/19 - 10/25/19 [facility] [address] [place] [address]- [facility] Attending Physician: Israel Romero MD Allergies, Adverse Reactions, Alerts Substance Reaction Severity Status NKA Active Immunizations Given and Recorded Vaccine Date Status Refusal Reason tetanus/diphtheria/pertussis, acel(Tdap) 09/15/11 Recorded Medications escitalopram 10 mg oral tablet 1 tablet = 10 mg, By Mouth, Daily, # 30 tablet, 5 Refills, Maintenance, 10/18/19 14:11:00 EST, [facility], 163, cm, 10/18/19 13:47:00 EST, Height, 118.6, kg, 05/22/18 21:28:00 EDT, Dry Weight Start Date: 10/18/19 Status: Ordered levothyroxine 0.2 mg oral tablet 1 tablet = 200 mcg, By Mouth, Daily, # 30 tablet, 0 Refills, Maintenance, 06/17/19 15:05:55 EDT, Tablet Start Date: 06/17/19 Status: Ordered omeprazole 40 mg oral enteric coated capsule See Instructions, 1 capsule By Mouth E/O DAY, 0 Refills, Maintenance, 03/01/19 12:04:41 EDT Start Date: 03/01/19 Status: Ordered Problem List Condition Effective Dates Status Health Status Inform ant Adult-onset obesity(Confirmed) Active Chest pain(Confirmed) Active Esophageal reflux disease(Confirmed) Active History of section(Confirmed) Active Hypothyroidism(Confirmed) Active Morbid obesity(Confirmed) Active Arm pain(Confirmed) Active (Confirmed) Active (Confirmed) Active Vital Signs Most recent to oldest [Reference Range]: 1 Height 163.00 cm (10/18/19 1:47 PM) Weight 118.9 kg (10/18/19 1:47 PM) Oxygen Saturation [94-100 %] 99 % (10/18/19 1:47 PM) Pulse Rate [55-90 bpm] 93 bpm *H* (10/18/19 1:47 PM) Body Mass Index [18.5-24.99] 44.75 *>HHI* (10/18/19 1:47 PM) Blood Pressure [90-138/55-84 mm Hg] 142/ 66mm Hg *H* (10/18/19 1:47 PM) Respiratory Rate [16-30 br/min] 16 br/mi n (10/18/19 1:47 PM) Temperature [96.8-100.4 DegF] 99.2 DegF (10/18/19 1:47 PM) Mode of Delivery (Oxygen) Room air (10/18/19 1:47 PM) Blood pressure sites Arm, left (10/18/19 1:47 PM) Temperature Route Oral (10/18/19 1:47 PM) Weight Obtained Via Standing scale (10/18/19 1:47 PM) Social History Social History Type Response Smoking Status Never (less than 100 in lifetime) entered on: 03/01/19 Sex
--- OUTSIDE RECORDS SUMMARY | 2023-10-02 11:13 | XMS_ITS | Continuity of Care Document ---
Author Name Unknown [facility] Address [address] [place] [address]- Care Team Providers Care Game Author Name Role Phone Juan TEIXEIRA, Aaliyah Cardozo Primary Care Physician Encounter [facility] Date(s): 11/26/21 - [facility]26/[facility] [address] [place] [address]- Attending Physician: AdmRuthann meek Admitting Physician: Admtr, Ar8 Referring Physician: Admtr, Ar8 Allergies, Adverse Reactions, Alerts No Known Allergies Immunizations Given and Recorded Vaccine Date Status Refusal Reason SARS-CoV-2 (COVID-19) mRNA BNT-162b2 vac 12/23/20 Recorded SARS-CoV-2 (COVID-19) mRNA BNT-162b2 vac 12/02/20 Recorded influenza virus vaccine, inactivated 1 06/20/20 Gi rukhsana tetanus/diphtheria/pertussis, acel(Tdap) 09/15/11 Recorded 1Result Comment: [facility] [id number] Medications levothyroxine 0.2 mg oral tablet 1 tablet, By Mouth, Daily, # 30 tablet, 5 Refills, Maintenance, 06/09/21 13:09:00 EDT, [facility], 163, cm, 06/08/21 14:04:00 EDT, Height Start Date: 06/09/21 Stop Date: 12/06/21 Status: Ordered lisinopril 5 mg oral tablet 5 mg, 1, tablet, By Mouth, Daily, # 30 tablet, Refills 0, Tot. Refills 0, Maintenance, 11/14/21 7:34:00 EST, Route to Pharmacy Electronically, [facility], Partial fill upon patient request if the prescription is for a schedule II opioid drug., 16... Start Date: 11/14/21 Stop Date: 4/1/22 Status: Ordered omeprazole 40 mg oral enteric coated capsule 1 capsule = 40 mg, By Mouth, Daily, # 90 capsule, 1 Refills, Maintenance, 12/19/20 9:54:00 EDT, EC Capsule, [facility], 163, cm, 12/19/20 9:48:00 EDT, Height Start Date: 12/19/20 Status: Ordered Problem List Condition Effective Dates Status Health Status Inform ant Adult-onset obesity(Confirmed) Active Chest pain(Confirmed) Active Esophageal reflux disease(Confirmed) Active Generalized anxiety disorder(Confirmed) Active History of section(Confirmed) Active Hypothyroidism(Confirmed) Active Morbid obesity(Confirmed) Active Arm pain(Confirmed) Active (Confirmed) Active (Confirmed) Active Social History Social History Type Response Smoking Status Never (less than 100 in lifetime); Tobacco user in household: Yes; Previous treatment: None entered on: 06/20/20 Sex
--- OUTSIDE RECORDS SUMMARY | 2023-10-02 11:13 | XMS_ITS | Continuity of Care Document ---
Author Name Unknown Organization [facility] Address [address], [address] [place] [address]- Care Team Providers Care Pipe Foreman Name Role Phone Juan TEIXEIRA, Aaliyah Cardozo Primary Care Physician Encounter 11/06/20 - 11/13/20 [facility] [address], [address] [place] [address]- Attending Physician: Fausto Jasmine MD Admitting Physician: Fausto Jasmine MD Referring Physician: Fausto Jasmine MD Allergies, Adverse Reactions, Alerts Substance Reaction Severity Status NKA Active Immunizations Given and Recorded Vaccine Date Status Refusal Reason influenza virus vaccine, inactivated 1 06/20/20 Gi rukhsana tetanus/diphtheria/pertussis, acel(Tdap) 09/15/11 Recorded 1Result Comment: [facility] [id number] Medications levothyroxine 0.2 mg oral tablet 1 tablet, By Mouth, Daily, # 16 tablet, 5 Refills, Maintenance, 07/20/20 15:31:00 EST, [facility], 163, cm, 06/20/20 10:00:00 EDT, Height Start Date: 07/20/20 Status: Ordered Nexplanon 68 mg subcutaneous implant 1 each = 68 mg, Subcutaneous Infusion, Once, # 1 each, 0 Refills, Soft Stop, 06/20/20 10:28:00 EDT Start Date: 06/20/20 Status: Ordered omeprazole 40 mg oral enteric coated capsule 1 capsule = 40 mg, By Mouth, Daily, # 90 capsule, 1 Refills, Maintenance, 07/20/20 15:31:00 EST, ECCapsule, [facility], 163, cm, 06/20/20 10:00:00 EDT, Height, Dry Weight Start Date: 07/20/20 Status: Ordered omeprazole 40 mg oral enteric [...]
--- OUTSIDE RECORDS SUMMARY | 2023-10-02 11:13 | XMS_ITS | Continuity of Care Document ---
Author Name Unknown Organization [facility] Address [address] [place] [address]- Care Team Providers Care Clinical Veterinarian Name Role Phone Juan TEIXEIRA, Aaliyah Cardozo Primary Care Physician Encounter [facility] Date(s): 11/12/21 - 12/12/21 [facility] [address] [place] [address]- Allergies, Adverse Reactions, Alerts No Known Allergies Immunizations Given and Recorded Vaccine Date Status Refusal Reason SARS-CoV-2 (COVID-19) mRNA BNT-162b2 vac 12/23/20 Recorded SARS-CoV-2 (COVID-19) mRNA BNT-162b2 vac 12/02/20 Recorded influenza virus vaccine, inactivated 1 06/20/20 Gi rukhsana tetanus/diphtheria/pertussis, acel(Tdap) 09/15/11 Recorded 1Result Comment: [facility] [id number] Medications levothyroxine 0.2 mg oral tablet 1 tablet, By Mouth, Daily, # 30 tablet, 5 Refills, Maintenance, 06/09/21 13:09:00 EDT, [facility], 163, cm, 06/08/21 14:04:00 EDT, Height Start Date: 06/09/21 Stop Date: 12/06/21 Status: Ordered lisinopril 5 mg oral tablet 5 mg, 1, tablet, By Mouth, Daily, # 30 tablet, Refills 0, Tot. Refills 0, Maintenance, 11/14/21 7:34:00 EST, Route to Pharmacy Electronically, [facility], Partial fill upon patient request if the prescription is for a schedule II opioid drug., 16... Start Date: 11/14/21 Stop Date: 12/14/21 Status: Ordered omeprazole 40 mg oral enteric [...]
--- OUTSIDE RECORDS SUMMARY | 2023-10-02 11:13 | XMS_ITS | Continuity of Care Document ---
Author Name Unknown Organization [facility] Address [address] [place] [address]- Care Team Providers Care Coat Fitter Name Role Phone Juan TEIXEIRA, Aaliyah Cardozo Primary Care Physician [phone] Encounter [facility] [place] Date(s): 02/01/21 - 03/03/21 [facility] [address] [place] [address]- Attending Physician: AdmRuthann meek Admitting Physician: Admtr, Ar8 Referring Physician: Admtr, Ar8 Allergies, Adverse Reactions, Alerts Substance Reaction Severity Status NKA Active Immunizations Given and Recorded Vaccine Date Status Refusal Reason influenza virus vaccine, inactivated 1 06/20/20 Gi rukhsana tetanus/diphtheria/pertussis, acel(Tdap) 09/15/11 Recorded 1Result Comment: [facility] [id number] Medications levothyroxine 0.2 mg oral tablet 1 tablet, By Mouth, Daily, # 30 tablet, 5 Refills, Maintenance, 12/01/20 7:33:00 EDT, [facility], 163, cm, 11/07/20 13:30:00 EST, Height Start Date: 12/01/20 Stop Date: 05/30/21 Status: Ordered Nexplanon 68 mg subcutaneous implant 1 each = 68 mg, Subcutaneous Infusion, Once, # 1 each, 0 Refills, Soft Stop, 06/20/20 10:28:00 EDT Start Date: 06/20/20 Status: Ordered omeprazole 40 mg oral enteric coated capsule 1 capsule = 40 mg, By Mouth, Daily, # 90 capsule, 1 Refills, Maintenance, 12/19/20 9:54:00 EDT, EC Capsule, [facility], 163, cm, 12/19/20 9:48:00 EDT, Height Start Date: 12/19/20 Status: Ordered omeprazole 40 mg oral enteric [...]
--- OUTSIDE RECORDS SUMMARY | 2023-10-02 11:13 | XMS_ITS | Continuity of Care Document ---
Author Name Unknown Organization [facility] Address [address] [place] [address]- Care Team Providers Care Director Hr Communications Name Role Phone Juan TEIXEIRA, Aaliyah Cardozo Primary Care Physician [phone] Encounter 12/03/22 - 01/10/23 [facility] [address], [address] [place] [address]- Attending Physician: Bhavesh Laws Admitting Physician: Bhavesh Laws Referring Physician: Bhavesh Laws Allergies, Adverse Reactions, Alerts No Known Allergies Immunizations Given and Recorded Vaccine Date Status Refusal Reason SARS-CoV-2 (COVID-19) mRNA BNT-162b2 vac 12/23/20 Recorded SARS-CoV-2 (COVID-19) mRNA BNT-162b2 vac 12/02/20 Recorded influenza virus vaccine, inactivated 1 06/20/20 Gi rukhsana tetanus/diphtheria/pertussis, acel(Tdap) 09/15/11 Recorded 1Result Comment: [facility] 25596-019-07 Medications levothyroxine 0.2 mg oral tablet 1 tablet, By Mouth, Daily, # 30 tablet, 5 Refills, Maintenance, 06/09/21 13:09:00 EDT, [facility], 163, cm, 06/08/21 14:04:00 EDT, Height Start Date: 06/09/21 Stop Date: 12/06/21 Status: Ordered lisinopril 5 mg oral tablet 5 mg, 1, tablet, By Mouth, Daily, # 30 tablet, Refills 0, Tot. Refills 0, Maintenance, 11/14/21 7:34:00 EST, Route to Pharmacy Electronically, [facility], Partial fill upon patient request if the prescription is for a schedule II opioid drug., 16... Start Date: 11/14/21 Stop Date: 12/14/21 Status: Ordered omeprazole 40 mg oral enteric coated capsule 1 capsule, By Mouth, Daily, # 90 capsule, 1 Refills, [facility], 163, cm, 11/14/21 6:48:00 EST, Height, 111.8, kg, 09/20/21 12:57:00 EST, Dry Weight Start Date: 03/19/22 Status: Ordered Problem List Condition Confirmation Course Effective Dates Status H ealth Status Informant Adult-onset obesity Confirmed Active Chest pain Confirmed Active Esophageal reflux disease Confirmed Active Generalized anxiety disorder Confirmed Active History of section Confirmed Active Hypothyroidism Confirmed Active Morbid obesity Confirmed Active Arm pain Confirmed Active Confirmed Active Confirmed Active Rubella non-immune Confirmed Active Social History Social History Type Response Smoking Status Never (less than 100 in lifetime); Tobacco user in household: Yes; Previous treatment: None entered on: 06/20/20 Sex Patient Care team information Care Team Personnel Name: Aaliyah Martniez NP Position: S PCO Associate Professional Member Role: PCP Address: Address: [address] [place] [address]- Care Team Related Persons Name: CHIQUITA SORTO Address: home [address] [place] [address] Name: CHENG SUBRAMANIAN Address: home [address] [place] [address] Name: CHENG WHELAN Address: home [address] [place] [address]
--- OUTSIDE RECORDS SUMMARY | 2023-10-02 11:13 | XMS_ITS | Continuity of Care Document ---
Author Name Unknown Organization [facility] Address [address] [place] [address]- Care Team Providers Care Dust Puller Name Role Phone Juan TEIXEIRA, Aaliyah Cardozo Primary Care Physician Encounter [facility] Date(s): 09/17/21 - [facility]17/[facility] [address] [place] [address]- [place] Allergies, Adverse Reactions, Alerts No Known Allergies Immunizations Given and Recorded Vaccine Date Status Refusal Reason SARS-CoV-2 (COVID-19) mRNA BNT-162b2 vac 12/23/20 Recorded SARS-CoV-2 (COVID-19) mRNA BNT-162b2 vac 12/02/20 Recorded influenza virus vaccine, inactivated 1 06/20/20 Gi rukhsana tetanus/diphtheria/pertussis, acel(Tdap) 09/15/11 Recorded 1Result Comment: [facility] [id number] Medications levothyroxine 0.2 mg oral tablet 1 tablet, By Mouth, Daily, # 30 tablet, 5 Refills, Maintenance, 06/09/21 13:09:00 EDT, [facility], 163, cm, 06/08/21 14:04:00 EDT, Height Start Date: 06/09/21 Stop Date: 12/06/21 Status: Ordered Nexplanon 68 mg subcutaneous implant 1 each = 68 mg, Subcutaneous Infusion, Once, # 1 each, 0 Refills, Soft Stop, 06/20/20 10:28:00 EDT Start Date: 06/20/20 Status: Ordered omeprazole 40 mg oral enteric coated capsule 1 capsule = 40 mg, By Mouth, Daily, # 90 capsule, 1 Refills, Maintenance, 12/19/20 9:54:00 EDT, EC Capsule, [facility], 163, cm, 12/19/20 9:48:00 EDT, Height [...]
--- OUTSIDE RECORDS SUMMARY | 2023-10-02 11:13 | XMS_ITS | Continuity of Care Document ---
Author Name Unknown Organization [facility] Address [address] [place] [address]- Care Team Providers Care Foiling Machine Adjuster Name Role Phone Aaliyah Martinez NP Primary Care Physician [phone] Encounter [facility] Date(s): 09/04/20 - 09/11/20 [facility] [address] [place] [address]- Attending Physician: Not on Staff, Attending MD Referring Physician: Aaliyah Martinez NP Allergies, Adverse Reactions, Alerts Substance Reaction Severity Status NKA Active Immunizations Given and Recorded Vaccine Date Status Refusal Reason influenza virus vaccine, inactivated 1 06/20/20 Gi rukhsana tetanus/diphtheria/pertussis, acel(Tdap) 09/15/11 Recorded 1Result Comment: [facility] 25343-534-26 Medications levothyroxine 0.2 mg oral tablet 1 tablet, By Mouth, Daily, # 16 tablet, 5 Refills, Maintenance, 07/20/20 15:31:00 EST, [facility], 163, cm, 06/20/20 10:00:00 EDT, Height [...] 1 Refills, Maintenance, 07/20/20 15:31:00 EST, ECCapsule, [facility], 163, cm, 06/20/20 10:00:00 EDT, Height, [...] oldest [Reference Range]: 1 Height 163.00 cm (09/04/20 12:38 PM) Social History Social History Type Response Smoking Status Never (less than 100 in lifetime); Tobacco user in household: Yes; Previous treatment: None entered on: 06/20/20 Sex
--- OUTSIDE RECORDS SUMMARY | 2023-10-02 11:13 | XMS_ITS | Continuity of Care Document ---
Author Name Unknown Organization [facility] Address [address] [place] [address]- Care Team Providers Care Speech Therapy Teacher Name Role Phone Juan TEIXEIRA, Aaliyah Cardozo Primary Care Physician En[facility] Date(s): [facility]/20/20 [facility] [address] [place] [address]- Encounter Diagnosis Esophageal reflux disease(Discharge Diagnosis) - 06/20/20 Morbid obesity(Discharge Diagnosis) - 06/20/20 Hypothyroidism(Discharge Diagnosis) - 06/20/20 Physical exam(Discharge Diagnosis) - 06/20/20 Attending Physician: Not on Staff, Attending MD Allergies, Adverse Reactions, Alerts Substance Reaction Severity Status NKA Active Immunizations Given and Recorded Vaccine Date Status Refusal Reason influenza virus vaccine, inactivated 1 06/20/20 Gi rukhsana tetanus/diphtheria/pertussis, acel(Tdap) 09/15/11 Recorded 1Result Comment: [facility] 23127-802-68 Medications levothyroxine 0.2 mg oral tablet 1 tablet, By Mouth, Daily, # 16 tablet, 5 Refills, Maintenance, 06/08/20 11:34:00 EDT, [facility], 163, cm, 10/18/19 13:47:00 EST, Height Start Date: 06/08/20 Status: Ordered Nexplanon 68 mg subcutaneous implant 1 each = 68 mg, Subcutaneous Infusion, Once, # 1 each, 0 Refills, Soft Stop, 06/20/20 10:28:00 EDT Start Date: 06/20/20 Status: Ordered omeprazole 40 mg oral enteric coated capsule 1 capsule = 40 mg, By Mouth, Daily, # 90 capsule, 1 Refills, Maintenance, 06/20/20 10:20:00 EDT, ECCapsule, [facility], 163, cm, 06/20/20 10:00:00 EDT, Height, Dry Weight Start Date: 06/20/20 Status: Ordered omeprazole 40 [...] Arm pain(Confirmed) Active (Confirmed) Active (Confirmed) Active Diagnosis Diagnosis Type Effective Dates Health Status Clinical Service Informant Esophageal reflux disease Discharge Diagnosis 06/20/20 Morbid obesity Discharge Diagnosis 06/20/20 Hypothyroidism Discharge Diagnosis 06/20/20 Physical exam Discharge Diagnosis 06/20/20 Vital Signs Most recent to oldest [Reference Range]: 1 Height 163.00 cm (06/20/20 10:00 AM) Weight 114.0 kg (06/20/20 10:00 AM) Oxygen Saturation [94-100 %] 99 % (06/20/20 10:00 AM) Pulse Rate [55-90 bpm] 99 bpm *H* (06/20/20 10:00 AM) Body Mass Index [18.5-24.99] 42.91 *>HHI* (06/20/20 10:00 AM) Blood Pressure [90-138/55-84 mm Hg] 118/ 74mm Hg (06/20/20 10:00 AM) Temperature [96.8-100.4 DegF] 97.3 DegF (06/20/20 10:00 AM) Mode of Delivery (Oxygen) Room air (06/20/20 10:00 AM) Blood pressure sites Arm, left (06/20/20 10:00 AM) Temperature Route Temporal (06/20/20 10:00 AM) Weight Obtained Via Standing scale (06/20/20 10:00 AM) Social History Social History Type Response Smoking Status Never (less than 100 in lifetime); Tobacco user in household: Yes; Previous treatment: None entered on: 06/20/20 Sex
--- OUTSIDE RECORDS SUMMARY | 2023-10-02 11:13 | XMS_ITS | Continuity of Care Document ---
Author Name Unknown Organization [facility] Address [address] [place] [address]- Care Team Providers Care Transfer Station Attendant Name Role Phone Juan TEIXEIRA, Aaliyah Cardozo Primary Care Physician Encounter [facility] Date(s): 11/26/21 - 12/26/21 [facility] [address] [place] [address]- [place] Allergies, Adverse Reactions, Alerts No Known Allergies Immunizations Given and Recorded Vaccine Date Status Refusal Reason SARS-CoV-2 (COVID-19) mRNA BNT-162b2 vac 12/23/20 Recorded SARS-CoV-2 (COVID-19) mRNA BNT-162b2 vac 12/02/20 Recorded influenza virus vaccine, inactivated 1 06/20/20 Gi rukhsana tetanus/diphtheria/pertussis, acel(Tdap) 09/15/11 Recorded 1Result Comment: [facility] 10519-995-02 Medications levothyroxine 0.2 mg oral tablet 1 tablet, By Mouth, Daily, # 30 tablet, 5 Refills, Maintenance, 06/09/21 13:09:00 EDT, [facility], 163, cm, 06/08/21 14:04:00 EDT, Height Start Date: 06/09/21 Stop Date: 12/06/21 Status: Ordered lisinopril 5 mg oral tablet 5 mg, 1, tablet, By Mouth, Daily, # 30 tablet, Refills 0, Tot. Refills 0, Maintenance, 11/14/21 7:34:00 EST, Route to Pharmacy Electronically, [facility], Partial fill upon patient request if [...]
--- OUTSIDE RECORDS SUMMARY | 2023-10-02 11:13 | XMS_ITS | Continuity of Care Document ---
Author Name Unknown Organization [facility] [place] [facility] Address [address] [place] [address]- Care Team Providers Care Water Engineer Name Role Phone Juan TEIXEIRA, Aaliyah Cardozo Primary Care Physician Encounter [facility] Date(s): 06/08/21 - [facility]/08/[facility] [address] [place] [address]- [place] Allergies, Adverse Reactions, Alerts Substance Reaction Severity Status NKA Active Immunizations Given and Recorded Vaccine Date Status Refusal Reason SARS-CoV-2 (COVID-19) mRNA BNT-162b2 vac 12/23/20 Recorded SARS-CoV-2 (COVID-19) mRNA BNT-162b2 vac 12/02/20 Recorded influenza virus vaccine, inactivated 1 06/20/20 Gi rukhsana tetanus/diphtheria/pertussis, acel(Tdap) 09/15/11 Recorded 1Result Comment: [facility] 44334-184-28 Medications levothyroxine 0.2 mg oral tablet 1 [...] Refills, Maintenance, 12/19/20 9:54:00 EDT, EC Capsule, [facility], 163, cm, 12/19/20 9:48:00 EDT, Height [...]
--- OUTSIDE RECORDS SUMMARY | 2023-10-02 11:13 | XMS_ITS | Continuity of Care Document ---
Author Name Unknown Organization [facility] Address [address], [facility] [address] [place] [address]- Care Team Providers Care Power Driven Brush Maker Name Role Phone Juan POOL ATTENDANT, Aaliyah M Primary Care Physician Encounter 11/07/21 - 11/14/21 [facility] [address], [address] [place] [address]- Attending Physician: Fausto Jasmine MD Admitting Physician: Fausto Jasmine MD Referring Physician: Fausto Jasmine MD Allergies, Adverse Reactions, Alerts No Known Allergies Immunizations Given and Recorded Vaccine Date Status Refusal Reason SARS-CoV-2 (COVID-19) mRNA BNT-162b2 vac 12/23/20 Recorded SARS-CoV-2 (COVID-19) mRNA BNT-162b2 vac 12/02/20 Recorded influenza virus vaccine, inactivated 1 06/20/20 Gi rukhsana tetanus/diphtheria/pertussis, acel(Tdap) 09/15/11 Recorded 1Result Comment: [facility] 41221-600-37 Medications levothyroxine 0.2 mg oral tablet 1 tablet, By Mouth, Daily, # 30 tablet, 5 Refills, Maintenance, 06/09/21 13:09:00 EDT, [facility], 163, cm, 06/08/21 14:04:00 EDT, Height Start Date: 06/09/21 Stop Date: 12/06/21 Status: Ordered lisinopril 5 mg oral tablet 5 mg, 1, tablet, By Mouth, Daily, # 30 tablet, Refills 0, Tot. Refills 0, Maintenance, 11/14/21 7:34:00 EST, Route to Pharmacy Electronically, [facility], Partial fill upon patient request if [...]
--- OUTSIDE RECORDS SUMMARY | 2023-10-02 11:13 | XMS_ITS | Continuity of Care Document ---
Author Name Unknown Organization [facility] Address [address] [place] [address]- Care Team Providers Care Heat Treat Worker Name Role Phone Juan TITLE OFFICER, Aaliyah Cardozo Primary Care Physician Encounter [facility] Date(s): 09/20/20 - 10/20/20 [facility] [address] [place] [address]- Attending Physician: Admtr, Wilbert8 Admitting Physician: AdmtrRuthann Referring Physician: Admtr, Ar8 Allergies, Adverse Reactions, Alerts Substance Reaction Severity Status NKA Active Immunizations Given and Recorded Vaccine Date Status Refusal Reason influenza virus vaccine, inactivated 1 06/20/20 Gi rukhsana tetanus/diphtheria/pertussis, acel(Tdap) 09/15/11 Recorded 1Result Comment: [facility] 64994-624-20 Medications levothyroxine 0.2 mg oral tablet 1 tablet, By Mouth, Daily, # 16 tablet, 5 Refills, Maintenance, 07/20/20 15:31:00 EST, [facility], 163, cm, 06/20/20 10:00:00 EDT, Height [...] 1 Refills, Maintenance, 07/20/20 15:31:00 EST, ECCapsule, [facility], 163, cm, 06/20/20 10:00:00 EDT, Height, [...]
--- OUTSIDE RECORDS SUMMARY | 2023-10-02 11:13 | XMS_ITS | Continuity of Care Document ---
Author Name Unknown Organization [facility] Address [address] [place] [address]- Care Team Providers Care Machine Joiner Cementer Name Role Phone Juan ELECTRIC NEEDLE SPECIALIST, Aaliyah Cardozo Primary Care Physician Encounter [facility] Date(s): 12/19/20 - 12/26/20 [facility] [address] [place] [address]- Encounter Diagnosis Hypothyroidism(Discharge Diagnosis) - 12/19/20 Esophageal reflux disease(Discharge Diagnosis) - 12/19/20 Morbid obesity(Discharge Diagnosis) - 12/19/20 Right flank pain(Discharge Diagnosis) - 12/19/20 Attending Physician: Dk Us MD Allergies, Adverse Reactions, Alerts Substance Reaction Severity Status NKA Active Immunizations Given and Recorded Vaccine Date Status Refusal Reason influenza virus vaccine, inactivated 1 06/20/20 Gi rukhsana tetanus/diphtheria/pertussis, acel(Tdap) 09/15/11 Recorded 1Result Comment: [facility] 55271-501-20 Medications levothyroxine 0.2 mg oral tablet 1 tablet, By Mouth, Daily, # 30 tablet, 5 Refills, Maintenance, 12/01/20 7:33:00 EDT, [facility], 163, cm, 11/07/20 13:30:00 EST, Height [...] Effective Dates Health Status Clinical Service Informant Hypothyroidism Discharge Diagnosis 12/19/20 Esophageal reflux disease Discharge Diagnosis 12/19/20 Morbid obesity Discharge Diagnosis 12/19/20 Right flank pain Discharge Diagnosis 12/19/20 Vital Signs Most recent to oldest [Reference Range]: 1 2 3 Height 163.00 cm (12/19/20 9:48 AM) 163.00 cm (12/19/20 9:48 AM) 163.00 cm (12/19/20 9:39 AM) Weight 117.6 kg (12/19/20 9:39 AM) Oxygen Saturation [94-100 %] 98 % (12/19/20 9:39 AM) Pulse Rate [55-90 bpm] 81 bpm (12/19/20 9:39 AM) Body Mass Index [18.5-24.99] 44.26 *>HHI* (12/19/20 9:39 AM) Blood Pressure [90-138/55-84 mm Hg] 142/84mm Hg *H* (12/19/20 9:48 AM) 138/92mm Hg (12/19/20 9:48 AM) 138/92mm Hg (12/19/20 9:39 AM) Temperature [96.8-100.4 DegF] 97.4 DegF (12/19/20 9:39 AM) Mode of Delivery (Oxygen) Room air (12/19/20 9:39 AM) Blood pressure sites Arm, left (12/19/20 9:48 AM) Arm, left (12/19/20 9:48 AM) Arm, left (12/19/20 9:39 AM) Temperature Route Temporal (12/19/20 9:39 AM) Weight Obtained Via Standing scale (12/19/20 9:39 AM) Social History Social History Type Response Smoking Status Never (less than 100 in lifetime); Tobacco user in household: Yes; Previous treatment: None entered on: 06/20/20 Sex
--- OUTSIDE RECORDS SUMMARY | 2023-10-02 11:13 | XMS_ITS | Continuity of Care Document ---
Author Name Unknown Organization [facility] Address [address] [facility] [address] [place] [address]- Care Team Providers Care Detective Lieutenant Name Role Phone Israel Romero MD Primary Care Physician Encounter 11/05/19 - 11/12/19 [facility] [address], [facility] [address] [place] [address]- [phone] Attending Physician: Israel Romero MD Admitting Physician: Israel Romero MD Referring Physician: Israel Romero MD Allergies, Adverse Reactions, Alerts Substance Reaction Severity Status NKA Active Immunizations Given and Recorded Vaccine Date Status Refusal Reason tetanus/diphtheria/pertussis, acel(Tdap) 09/15/11 Recorded Medications escitalopram 10 mg oral tablet 1 tablet = 10 mg, By Mouth, Daily, # 30 tablet, 5 Refills, Maintenance, 10/18/19 14:11:00 EST, [facility], 163, cm, 10/18/19 13:47:00 EST, Height, [...] Daily, # 90 capsule, 1 Refills, Maintenance, 11/11/19 8:16:00 EST, EC Capsule, [facility], 163, cm, 10/18/19 13:47:00 EST, Height, 118.6, kg, 05/22/18 21:28:00 EDT, Dry Weight Start Date: 11/11/19 Status: Ordered omeprazole 40 mg oral enteric [...]
--- OUTSIDE RECORDS SUMMARY | 2023-10-02 11:13 | XMS_ITS | Continuity of Care Document ---
Author Name Unknown Organization [facility] Address [address] [place] [address]- Care Team Providers Care Bread Icer Name Role Phone Juan JOINT YARNER, Aaliyah Cardozo Primary Care Physician En[facility] Date(s): 08/05/20 - [facility]04[facility] [address] [place] [address]- Allergies, Adverse Reactions, Alerts Substance Reaction Severity Status NKA Active Immunizations Given and Recorded Vaccine Date Status Refusal Reason influenza virus vaccine, inactivated 1 06/20/20 Gi rukhsana tetanus/diphtheria/pertussis, acel(Tdap) 09/15/11 Recorded 1Result Comment: [facility] 37513-684-37 Medications levothyroxine 0.2 mg oral tablet 1 tablet, By Mouth, Daily, # 16 tablet, 5 Refills, Maintenance, 07/20/20 15:31:00 EST, [facility], 163, cm, 06/20/20 10:00:00 EDT, Height [...] 1 Refills, Maintenance, 07/20/20 15:31:00 EST, ECCapsule, [facility], 163, cm, 06/20/20 10:00:00 EDT, Height, [...]
--- OUTSIDE RECORDS SUMMARY | 2023-10-02 11:13 | XMS_ITS | Continuity of Care Document ---
Author Name Unknown Organization [facility] Address [address] [place] [address]- Care Team Providers Care Medical Physics Teacher Name Role Phone Juan MARKETING STRATEGY ANALYST, Aaliyah Cardozo Primary Care Physician En[facility] Date(s): 12/28/20 - 01/27/21 [facility] [address] [place] [address]- Allergies, Adverse Reactions, Alerts Substance Reaction Severity Status NKA Active Immunizations Given and Recorded Vaccine Date Status Refusal Reason influenza virus vaccine, inactivated 1 06/20/20 Gi rukhsana tetanus/diphtheria/pertussis, acel(Tdap) 09/15/11 Recorded 1Result Comment: [facility] 16063-716-09 Medications levothyroxine 0.2 mg oral tablet 1 tablet, By Mouth, Daily, # 30 tablet, 5 Refills, Maintenance, 12/01/20 7:33:00 EDT, [facility], 163, cm, 11/07/20 13:30:00 EST, Height [...] Refills, Maintenance, 12/19/20 9:54:00 EDT, EC Capsule, [facility], 163, cm, 12/19/20 9:48:00 EDT, Height [...]
--- OUTSIDE RECORDS SUMMARY | 2023-10-02 11:13 | XMS_ITS | Continuity of Care Document ---
Author Name Unknown Organization [facility] Address [address] [place] [address]- Care Team Providers Care Senior Game Advisor Name Role Phone Juan TEIXEIRA, Aaliyah Cardozo Primary Care Physician [phone] Encounter [facility] Date(s): 05/16/21 - [facility]15/[facility] [address] [place] [address]- [place] Allergies, Adverse Reactions, Alerts Substance Reaction Severity Status NKA Active Immunizations Given and Recorded Vaccine Date Status Refusal Reason SARS-CoV-2 (COVID-19) mRNA BNT-162b2 vac 12/23/20 Recorded SARS-CoV-2 (COVID-19) mRNA BNT-162b2 vac 12/02/20 Recorded influenza virus vaccine, inactivated 1 06/20/20 Gi rukhsana tetanus/diphtheria/pertussis, acel(Tdap) 09/15/11 Recorded 1Result Comment: [facility] 01915-381-73 Medications levothyroxine 0.2 mg oral tablet 1 [...] Refills, Maintenance, 12/19/20 9:54:00 EDT, EC Capsule, [facility], 163, cm, 12/19/20 9:48:00 EDT, Height [...]
--- OUTSIDE RECORDS SUMMARY | 2023-10-02 11:13 | XMS_ITS | Continuity of Care Document ---
Author Name Unknown Organization [facility] Address [address] [place] [address]- Care Team Providers Care [employer] Executive Director Name Role Phone Juan RAILWAY SWITCH OPERATOR, Aaliyah Cardozo Primary Care Physician [phone] Encounter [facility] Date(s): 09/20/20 - 09/27/20 [facility] [address] [place] [address]- Attending Physician: Ellen Gilliam MD Allergies, Adverse Reactions, Alerts Substance Reaction Severity Status NKA Active Immunizations Given and Recorded Vaccine Date Status Refusal Reason influenza virus vaccine, inactivated 1 06/20/20 Gi rukhsana tetanus/diphtheria/pertussis, acel(Tdap) 09/15/11 Recorded 1Result Comment: [facility] 89690-080-99 Medications levothyroxine 0.2 mg oral tablet 1 tablet, By Mouth, Daily, # 16 tablet, 5 Refills, Maintenance, 07/20/20 15:31:00 EST, [facility], 163, cm, 06/20/20 10:00:00 EDT, Height [...] 1 Refills, Maintenance, 07/20/20 15:31:00 EST, ECCapsule, [facility], 163, cm, 06/20/20 10:00:00 EDT, Height, [...] oldest [Reference Range]: 1 Height 163.00 cm (09/20/20 1:15 PM) Social History Social History Type Response Smoking Status Never (less than 100 in lifetime); Tobacco user in household: Yes; Previous treatment: None entered on: 06/20/20 Sex
--- OUTSIDE RECORDS SUMMARY | 2023-10-02 11:14 | XMS_ITS | Continuity of Care Document ---
Author Name Unknown Organization [facility] Address [address] [place] [address]- Care Team Providers Care Home Care Administrator Name Role Phone Juan MIXING PICKER TENDER, Aaliyah Cardozo Primary Care Physician Encounter [facility] Date(s): 12/13/20 - 01/12/21 [facility] [address] [place] [address]- Allergies, Adverse Reactions, Alerts Substance Reaction Severity Status NKA Active Immunizations Given and Recorded Vaccine Date Status Refusal Reason influenza virus vaccine, inactivated 1 06/20/20 Gi rukhsana tetanus/diphtheria/pertussis, acel(Tdap) 09/15/11 Recorded 1Result Comment: [facility][NOTE 3] 30100-015-15 Medications levothyroxine 0.2 mg oral tablet 1 tablet, By Mouth, Daily, # 30 tablet, 5 Refills, Maintenance, 12/01/20 7:33:00 EDT, [facility], 163, cm, 11/07/20 13:30:00 EST, Height [...] Refills, Maintenance, 12/19/20 9:54:00 EDT, EC Capsule, [facility], 163, cm, 12/19/20 9:48:00 EDT, Height [...]
--- OUTSIDE RECORDS SUMMARY | 2023-10-02 11:14 | XMS_ITS | Continuity of Care Document ---
Author Name Unknown Organization [facility] Address [address] [place] [address]- Care Team Providers Care Retirement Officer Name Role Phone Juan TEIXEIRA, Aaliyah Cardozo Primary Care Physician [phone] Encounter [facility] Date(s): 11/07/20 - [facility]14/[facility] [address] [place] [address]- Attending Physician: Not on Staff, Attending MD Allergies, Adverse Reactions, Alerts Substance Reaction Severity Status NKA Active Immunizations Given and Recorded Vaccine Date Status Refusal Reason influenza virus vaccine, inactivated 1 06/20/20 Gi rukhsana tetanus/diphtheria/pertussis, acel(Tdap) 09/15/11 Recorded 1Result Comment: [facility] 43487-240-90 Medications levothyroxine 0.2 mg oral tablet 1 tablet, By Mouth, Daily, # 16 tablet, 5 Refills, Maintenance, 07/20/20 15:31:00 EST, [facility], 163, cm, 06/20/20 10:00:00 EDT, Height [...] 1 Refills, Maintenance, 07/20/20 15:31:00 EST, ECCapsule, [facility], 163, cm, 06/20/20 10:00:00 EDT, Height, [...] oldest [Reference Range]: 1 Height 163.00 cm (11/07/20 1:30 PM) Social History Social History Type Response Smoking Status Never (less than 100 in lifetime); Tobacco user in household: Yes; Previous treatment: None entered on: 06/20/20 Sex
--- OUTSIDE RECORDS SUMMARY | 2023-10-02 11:14 | XMS_ITS | Continuity of Care Document ---
Author Name Unknown Organization [facility] Address [address] [place] [address]- Care Team Providers Care Clinical Engineer Name Role Phone Juan TEIXEIRA, Aaliyah Cardozo Primary Care Physician Encounter 02/11/23 - 02/18/23 [facility] [address], [address] [place] [address]- Attending Physician: Bhavesh Laws Admitting Physician: Bhavesh Laws Referring Physician: Bhavesh Laws Allergies, Adverse Reactions, Alerts No Known Allergies Immunizations Given and Recorded Vaccine Date Status Refusal Reason SARS-CoV-2 (COVID-19) mRNA BNT-162b2 vac 12/23/20 Recorded SARS-CoV-2 (COVID-19) mRNA BNT-162b2 vac 12/02/20 Recorded influenza virus vaccine, inactivated 1 06/20/20 Gi rukhsana tetanus/diphtheria/pertussis, acel(Tdap) 09/15/11 Recorded 1Result Comment: [facility] 60608-277-27 Medications levothyroxine 0.2 mg oral tablet 1 tablet, By Mouth, Daily, # 30 tablet, 5 Refills, Maintenance, 06/09/21 13:09:00 EDT, [facility], 163, cm, 06/08/21 14:04:00 EDT, Height Start Date: 06/09/21 Stop Date: 12/06/21 Status: Ordered lisinopril 5 mg oral tablet 5 mg, 1, tablet, By Mouth, Daily, # 30 tablet, Refills 0, Tot. Refills 0, Maintenance, 11/14/21 7:34:00 EST, Route to Pharmacy Electronically, [facility], Partial fill upon patient request if [...] Active Confirmed Active Rubella non-immune Confirmed Active Results Radiology Reports * Exam Date Time Procedure Performing Provider Status 02/11/23 10:49 AM MM Digital Mammo Screening Martinez Tran; Tanna (Verified) Notes: (MM Digital Mammo Screening) Reason For Exam: Z12.31 ROUTINE SCREENING RESULT: MM Digital Mammo Screening PROCEDURE: MM Digital Mammo Screening INDICATION: Screening for breast cancer. No known palpable abnormalities. COMPARISON: [facility] dating back to 11/05/2019. TECHNIQUE: Full-field digital CC and MLO 3D tomosynthesis images of both breasts were acquired. Computer-aided detection (CAD) was utilized in the interpretation of this study. DENSITY: The breast tissue contains scattered areas of fibroglandular density. FINDINGS: No suspicious masses, suspicious microcalcifications, or areas of architectural distortion are seen in either breast to suggest malignancy. IMPRESSION: No mammographic evidence of malignancy. RECOMMENDATION: Annual mammographic screening BI-RADS: 1 (Negative) Lay letter mailed to patient WSN: [id number] Ordering Physician: Bhavesh Mena Dictated By: Chuyita Handy MD, I Dictated Date/Time: 02/11/23 11:57 am Reviewed By: Chuyita Handy MD, I Signed By: Chuyita Handy MD, I Signed Date/Time: 02/11/23 11:57 am Transcribed By: SHAUN Wood Gluer Date/Time: 02/11/23 11:54 am Birads: Social History Social History Type Response Smoking Status Never (less than 100 in lifetime); Tobacco user in household: Yes; Previous treatment: None entered on: 06/20/20 Sex MG Breast Screening * BHSPowerscribe , CIS S: TRANSCRIBE Chuyita Handy MD, I: VERIFY Event Display: Result: Authored Date: [id number] PROCEDURE: MM Digital Mammo Screening INDICATION: Screening for breast cancer. No known palpable abnormalities. COMPARISON: [facility] dating back to 11/05/2019. TECHNIQUE: Full-field digital CC and MLO 3D tomosynthesis images of both breasts were acquired. Computer-aided detection (CAD) was utilized in the interpretation of this study. DENSITY: The breast tissue contains scattered areas of fibroglandular density. FINDINGS: No suspicious masses, suspicious microcalcifications, or areas of architectural distortion are seen in either breast to suggest malignancy. IMPRESSION: No mammographic evidence of malignancy. RECOMMENDATION: Annual mammographic screening BI-RADS: 1 (Negative) Lay letter mailed to patient WSN: [id number] Ordering Physician: Bhavesh Mena Dictated By: Chuyita Handy MD, I Dictated Date/Time: 02/11/23 11:57 am Reviewed By: Chuyita Handy MD, I Signed By: Chuyita Handy MD, I Signed Date/Time: 02/11/23 11:57 am Transcribed By: SHAUN Wood Gluer Date/Time: 02/11/23 11:54 am Birads: Patient Care team information Care Team Personnel Name: Aaliyah Martinez NP Position: S PCO Associate Professional Member Role: PCP Address: Address: [address] [place] [address]- Care Team Related Persons Name: CHIQUITA SORTO Address: home [address] [place] [address] Name: CHENG SUBRAMANIAN Address: home [address] [place] [address] Name: CHENG WHELAN Address: home [address] [place] [address]
--- OUTSIDE RECORDS SUMMARY | 2023-10-02 11:14 | XMS_ITS | Continuity of Care Document ---
Author Name Unknown Organization [facility] Address [address] [place] [address]- Care Team Providers Care Campground Attendant Name Role Phone Juan COMPLIANCE MONITOR, Aaliyah Cardozo Primary Care Physician Encounter [facility] Date(s): 11/30/20 - 12/30/20 [facility] [address] [place] [address]- Allergies, Adverse Reactions, Alerts Substance Reaction Severity Status NKA Active Immunizations Given and Recorded Vaccine Date Status Refusal Reason influenza virus vaccine, inactivated 1 06/20/20 Gi rukhsana tetanus/diphtheria/pertussis, acel(Tdap) 09/15/11 Recorded 1Result Comment: [facility] 40344-342-27 Medications levothyroxine 0.2 mg oral tablet 1 tablet, By Mouth, Daily, # 30 tablet, 5 Refills, Maintenance, 12/01/20 7:33:00 EDT, [facility], 163, cm, 11/07/20 13:30:00 EST, Height [...] Refills, Maintenance, 12/19/20 9:54:00 EDT, EC Capsule, [facility], 163, cm, 12/19/20 9:48:00 EDT, Height [...]
--- OUTSIDE RECORDS SUMMARY | 2023-10-02 11:14 | XMS_ITS | Continuity of Care Document ---
Author Name Unknown Organization [facility] Address [address] [place] [address]- Care Team Providers Care Dairy Equipment Repairer Name Role Phone Juan RECEIVING DOCK CHECKER, Aaliyah Cardozo Primary Care Physician Encounter [facility] Date(s): 11/30/20 - 12/30/20 [facility] [address] [place] [address]- Allergies, Adverse Reactions, Alerts Substance Reaction Severity Status NKA Active Immunizations Given and Recorded Vaccine Date Status Refusal Reason influenza virus vaccine, inactivated 1 06/20/20 Gi rukhsana tetanus/diphtheria/pertussis, acel(Tdap) 09/15/11 Recorded 1Result Comment: [facility] 62570-741-60 Medications levothyroxine 0.2 mg oral tablet 1 tablet, By Mouth, Daily, # 30 tablet, 5 Refills, Maintenance, 12/01/20 7:33:00 EDT, [facility], 163, cm, 11/07/20 13:30:00 EST, Height [...] Refills, Maintenance, 12/19/20 9:54:00 EDT, EC Capsule, [facility], 163, cm, 12/19/20 9:48:00 EDT, Height [...]
--- OUTSIDE RECORDS SUMMARY | 2023-10-02 11:14 | XMS_ITS | Continuity of Care Document ---
Author Name Unknown Organization [facility] Address [address] [place] [address]- Care Team Providers Care Bi Specialist Name Role Phone Juan REMOTE CONTROL MIRROR INSTALLER, Aaliyah Cardozo Primary Care Physician Encounter [facility] Date(s): 11/07/20 - [facility]/07/[facility] [address] [place] [address]- Attending Physician: Admtr, Ruthann Admitting Physician: AdmtrRuthann Referring Physician: Admtr, Ar8 Allergies, Adverse Reactions, Alerts Substance Reaction Severity Status NKA Active Immunizations Given and Recorded Vaccine Date Status Refusal Reason influenza virus vaccine, inactivated 1 06/20/20 Gi rukhsana tetanus/diphtheria/pertussis, acel(Tdap) 09/15/11 Recorded 1Result Comment: [facility] 64098-376-89 Medications levothyroxine 0.2 mg oral tablet 1 [...] 1 Refills, Maintenance, 07/20/20 15:31:00 EST, ECCapsule, [facility], 163, cm, 06/20/20 10:00:00 EDT, Height, [...]
--- OUTSIDE RECORDS SUMMARY | 2023-10-02 11:14 | XMS_ITS | Continuity of Care Document ---
Author Name Unknown Organization [facility] Address [address] [place] [address]- Care Team Providers Care Meter Record Clerk Name Role Phone Juan TEIXEIRA, Aaliyah Cardozo Primary Care Physician Encounter [facility] Date(s): [facility]/08/[facility] [address] [place] [address]- Encounter Diagnosis Esophageal reflux disease(Discharge Diagnosis) - 06/09/21 Hypothyroidism(Discharge Diagnosis) - 06/09/21 Morbid obesity(Discharge Diagnosis) - 06/09/21 Arm pain(Discharge Diagnosis) - 06/09/21 Elevated BP without diagnosis of hypertension(Discharge Diagnosis) - 06/09/21 Attending Physician: Not on Staff, Attending MD Allergies, Adverse Reactions, Alerts Substance Reaction Severity Status NKA Active Immunizations Given and Recorded Vaccine Date Status Refusal Reason SARS-CoV-2 (COVID-19) mRNA BNT-162b2 vac 12/23/20 Recorded SARS-CoV-2 (COVID-19) mRNA BNT-162b2 vac 12/02/20 Recorded influenza virus vaccine, inactivated 1 06/20/20 Gi rukhsana tetanus/diphtheria/pertussis, acel(Tdap) 09/15/11 Recorded 1Result Comment: [facility] 96782-788-96 Medications levothyroxine 0.2 mg oral tablet 1 [...] Service Informant Esophageal reflux disease Discharge Diagnosis 06/09/21 Hypothyroidism Discharge Diagnosis 06/09/21 Morbid obesity Discharge Diagnosis 06/09/21 Arm pain Discharge Diagnosis 06/09/21 Elevated BP without diagnosis of hypertension Discharge Diagnosis 06/09/21 Vital Signs Most recent to oldest [Reference Range]: 1 2 Height 163.00 cm (06/08/21 2:04 PM) 163.00 cm (06/08/21 1:53 PM) Weight 114.1 kg (06/08/21 1:53 PM) Pulse Rate [55-90 bpm] 86 bpm (06/08/21 1:53 PM) Body Mass Index [18.5-24.99] 42.94 *>HHI* (06/08/21 1:53 PM) Blood Pressure [90-138/55-84 mm Hg] 141/ 86mm Hg *H* (06/08/21 2:04 PM) 142/82mm Hg *H* (06/08/21 1:53 PM) Temperature [96.8-100.4 DegF] 97.8 DegF (06/08/21 1:53 PM) Liters per Minute 0 L/min (06/08/21 1:53 PM) Mode of Delivery (Oxygen) Room air (06/08/21 1:53 PM) Blood pressure sites Arm, right (06/08/21 2:04 PM) Arm, right (06/08/21 1:53 PM) Temperature Route Temporal (06/08/21 1:53 PM) Weight Obtained Via Standing scale (06/08/21 1:53 PM) Social History Social History Type Response Smoking Status Never (less than 100 in lifetime); Tobacco user in household: Yes; Previous treatment: None entered on: 06/20/20 Sex
--- OUTSIDE RECORDS SUMMARY | 2023-10-02 11:14 | XMS_ITS | Continuity of Care Document ---
Author Name Unknown Organization [facility] Address [address] [place] [address]- Care Team Providers Care Roll Inspector Name Role Phone Juan ANESTHESIOLOGY PHYSICIAN ASSISTANT, Aaliyah Cardozo Primary Care Physician [phone] Encounter [facility] Date(s): 12/19/20 - 01/18/21 [facility] [address] [place] [address]- Attending Physician: Admtr, Ruthann Admitting Physician: AdmtrRuthann Referring Physician: Admtr, Ar8 Allergies, Adverse Reactions, Alerts Substance Reaction Severity Status NKA Active Immunizations Given and Recorded Vaccine Date Status Refusal Reason influenza virus vaccine, inactivated 1 06/20/20 Gi rukhsana tetanus/diphtheria/pertussis, acel(Tdap) 09/15/11 Recorded 1Result Comment: [facility] [id number] Medications levothyroxine 0.2 mg oral tablet 1 [...] Refills, Maintenance, 12/19/20 9:54:00 EDT, EC Capsule, [facility], 163, cm, 12/19/20 9:48:00 EDT, Height [...]
--- OUTSIDE RECORDS SUMMARY | 2023-10-02 11:14 | XMS_ITS | Continuity of Care Document ---
Author Name Unknown Organization [facility] [place] [facility] Address [address] [place] [address]- Care Team Providers Care Mechanical Project Engineer Name Role Phone Juna TEIXEIRA, Aaliyah Cardozo Primary Care Physician [phone] Encounter [facility] Date(s): 07/08/21 [facility] [address] [place] [address]- [place] Allergies, Adverse Reactions, Alerts Substance Reaction Severity Status NKA Active Immunizations Given and Recorded Vaccine Date Status Refusal Reason SARS-CoV-2 (COVID-19) mRNA BNT-162b2 vac 12/23/20 Recorded SARS-CoV-2 (COVID-19) mRNA BNT-162b2 vac 12/02/20 Recorded influenza virus vaccine, inactivated 1 06/20/20 Gi rukhsana tetanus/diphtheria/pertussis, acel(Tdap) 09/15/11 Recorded 1Result Comment: [facility] 34855-757-63 Medications levothyroxine 0.2 mg oral tablet 1 [...] Refills, Maintenance, 12/19/20 9:54:00 EDT, EC Capsule, [facility], 163, cm, 12/19/20 9:48:00 EDT, Height [...]
--- OUTSIDE RECORDS SUMMARY | 2023-10-02 11:14 | XMS_ITS | Continuity of Care Document ---
Author Name Unknown Organization [facility] Address [address] [place] [address]- Care Team Providers Care Faro Dealer Name Role Phone Israel Romero MD Primary Care Physician [phone] Encounter [facility] Date(s): 10/18/19 - 12/18/19 [facility] Adult [address] [place] [address]- [facility] Attending Physician: Israel Romero MD Allergies, Adverse Reactions, Alerts Substance Reaction Severity Status NKA Active Immunizations Given and Recorded Vaccine Date Status Refusal Reason tetanus/diphtheria/pertussis, acel(Tdap) 09/15/11 Recorded Medications escitalopram 10 mg oral tablet 1 tablet = 10 mg, By Mouth, Daily, # 30 tablet, 5 Refills, Maintenance, 10/18/19 14:11:00 EST, [facility], 163, cm, 10/18/19 13:47:00 EST, Height, [...] Refills, Maintenance, 11/11/19 8:16:00 EST, EC Capsule, [facility], 163, cm, 10/18/19 13:47:00 EST, Height, [...]
--- OUTSIDE RECORDS SUMMARY | 2023-10-02 11:14 | XMS_ITS | Continuity of Care Document ---
Author Name Unknown Organization [facility] Address [address] [place] [address]- Care Team Providers Care Ui Software Developer Name Role Phone Aaliyah Martinez NP Primary Care Physician Encounter [facility] Date(s): 11/14/21 - 11/21/21 [facility] [address] [place] [address]- Encounter Diagnosis Hypothyroidism(Discharge Diagnosis) - 11/14/21 Hypertension(Discharge Diagnosis) - 11/14/21 Attending Physician: Aaliyah Martinez NP Allergies, Adverse Reactions, Alerts No Known Allergies Immunizations Given and Recorded Vaccine Date Status Refusal Reason SARS-CoV-2 (COVID-19) mRNA BNT-162b2 vac 12/23/20 Recorded SARS-CoV-2 (COVID-19) mRNA BNT-162b2 vac 12/02/20 Recorded influenza virus vaccine, inactivated 1 06/20/20 Gi rukhsana tetanus/diphtheria/pertussis, acel(Tdap) 09/15/11 Recorded 1Result Comment: [facility] 18527-578-54 Medications levothyroxine 0.2 mg oral tablet 1 tablet, By Mouth, Daily, # 30 tablet, 5 Refills, Maintenance, 06/09/21 13:09:00 EDT, [facility], 163, cm, 06/08/21 14:04:00 EDT, Height Start Date: 06/09/21 Stop Date: 12/06/21 Status: Ordered lisinopril 5 mg oral tablet 5 mg, 1, tablet, By Mouth, Daily, # 30 tablet, Refills 0, Tot. Refills 0, Maintenance, 11/14/21 7:34:00 EST, Route to Pharmacy Electronically, [facility], Partial fill upon patient request if [...] Diagnosis Diagnosis Type Effective Dates Health Status Cl inical Service Informant Hypothyroidism Discharge Diagnosis 11/14/21 Hypertension Discharge Diagnosis 11/14/21 Vital Signs Most recent to oldest [Reference Range]: 1 Height 163.00 cm (11/14/21 6:48 AM) Social History Social History Type Response Smoking Status Never (less than 100 in lifetime); Tobacco user in household: Yes; Previous treatment: None entered on: 06/20/20 Sex
--- OUTSIDE RECORDS SUMMARY | 2023-10-02 11:14 | XMS_ITS | Continuity of Care Document ---
Author Name Unknown Organization [facility] Address [address] [place] [address]- Care Team Providers Care Beam Dyer Name Role Phone Juan TECHNICAL ACCOUNT MANAGER, Aaliyah Cardozo Primary Care Physician Encounter [facility] Date(s): 12/27/20 - 01/26/[facility] [address] [place] [address]- Allergies, Adverse Reactions, Alerts Substance Reaction Severity Status NKA Active Immunizations Given and Recorded Vaccine Date Status Refusal Reason influenza virus vaccine, inactivated 1 06/20/20 Gi rukhsana tetanus/diphtheria/pertussis, acel(Tdap) 09/15/11 Recorded 1Result Comment: [facility] 65260-559-68 Medications levothyroxine 0.2 mg oral tablet 1 tablet, By Mouth, Daily, # 30 tablet, 5 Refills, Maintenance, 12/01/20 7:33:00 EDT, [facility], 163, cm, 11/07/20 13:30:00 EST, Height [...] Refills, Maintenance, 12/19/20 9:54:00 EDT, EC Capsule, [facility], 163, cm, 12/19/20 9:48:00 EDT, Height [...]
--- OUTSIDE RECORDS SUMMARY | 2023-10-02 11:14 | XMS_ITS | Continuity of Care Document ---
Author Name Unknown Organization [facility] Gust[facility] Address [address] [place] [address]- Care Team Providers Care Commodities Manager Name Role Phone Nick MENDOZA, Israel Walker Primary Care Physician [phone] Encounter [facility] Date(s): 11/18/19 - 11/28/19 [facility] Adult [address] [place] [address]- [facility] Attending Physician: Ruthann Viramontes Admitting Physician: AdmRuthann meek Referring Physician: AdmtrRuthann Allergies, Adverse Reactions, Alerts Substance Reaction Severity Status NKA Active Immunizations Given and Recorded Vaccine Date Status Refusal Reason tetanus/diphtheria/pertussis, acel(Tdap) 09/15/11 Recorded Medications escitalopram 10 mg oral tablet 1 tablet = 10 mg, By Mouth, Daily, # 30 tablet, 5 Refills, Maintenance, 10/18/19 14:11:00 EST, [facility], 163, cm, 10/18/19 13:47:00 EST, Height, [...] Refills, Maintenance, 11/11/19 8:16:00 EST, EC Capsule, [facility], 163, cm, 10/18/19 13:47:00 EST, Height, [...]
--- OUTSIDE RECORDS SUMMARY | 2023-10-02 11:14 | XMS_ITS | Continuity of Care Document ---
Author Name Unknown Organization [facility] Adult Address [address] [place] [address]- Care Team Providers Care Agricultural Produce Washer Name Role Phone Juan TEIXEIRA, Aaliyah Cardozo Primary Care Physician Encounter [facility] Date(s): 11/07/20 - 12/07/20 [facility] Adult [address] [place] [address]- Allergies, Adverse Reactions, Alerts Substance Reaction Severity Status NKA Active Immunizations Given and Recorded Vaccine Date Status Refusal Reason influenza virus vaccine, inactivated 1 06/20/20 Gi rukhsana tetanus/diphtheria/pertussis, acel(Tdap) 09/15/11 Recorded 1Result Comment: [facility] 77995-077-11 Medications levothyroxine 0.2 mg oral tablet 1 tablet, By Mouth, Daily, # 30 tablet, 5 Refills, Maintenance, 12/01/20 7:33:00 EDT, [facility], 163, cm, 11/07/20 13:30:00 EST, Height [...] 1 Refills, Maintenance, 07/20/20 15:31:00 EST, ECCapsule, [facility], 163, cm, 06/20/20 10:00:00 EDT, Height, [...]
--- OUTSIDE RECORDS SUMMARY | 2023-10-02 11:14 | XMS_ITS | Continuity of Care Document ---
Author Name Unknown Organization [facility] Gust[facility] Address [address] [place] [address]- Care Team Providers Care Dean Of Admissions Name Role Phone Israel Romero MD Primary Care Physician [phone] Encounter [facility] Date(s): 08/11/19 - 12/09/19 [facility] Adult [address] [place] [address]- [facility] Attending Physician: Israel Romero MD Allergies, Adverse Reactions, Alerts Substance Reaction Severity Status NKA Active Immunizations Given and Recorded Vaccine Date Status Refusal Reason tetanus/diphtheria/pertussis, acel(Tdap) 09/15/11 Recorded Medications escitalopram 10 mg oral tablet 1 tablet = 10 mg, By Mouth, Daily, # 30 tablet, 5 Refills, Maintenance, 10/18/19 14:11:00 EST, [facility], 163, cm, 10/18/19 13:47:00 EST, Height, [...] Refills, Maintenance, 11/11/19 8:16:00 EST, EC Capsule, [facility], 163, cm, 10/18/19 13:47:00 EST, Height, [...]
--- NOTE | 2023-10-02 11:39 | P.CNNE_ITS ---
History of Present Illness Data of Consult Service Date: 10/02/23 Primary Care Provider: Bhavesh Figueroa PA-C [facility] Reason for consult: Numbness 47 years old woman with obesity who was in usual state of health until about 4 days ago when she noted tingling and numbness in her toes. During next 2-3 days this feeling extended to involve her feet legs trunk up to breast area and also left arm but not right arm. It was not on her face. He did not notice any weakness or difficulty walking. There was no recent cold or flu-like illness or trauma or headache or neck pain or change in bowel bladder pattern. There was no rash. There was no speech or language difficulty or headache. Review of Systems 2 Review of Systems: As in HPI [facility] Past Medical History Medical History Morbid obesity Hypothyroidism HTN (hypertension) Social History Social History Alcohol intake: current Alcohol intake frequency: holidays/special occasions only Patient Tobacco Use Status: Never used Tobacco Smoked in Last 30 Days: No Patient Interested in Nicotine Replacement: No Patient Given Instructions on How to Stop Smoking: No Use of substances other than those prescribed or required for medical reasons: No Currently Displaying Signs/Symptoms of Drug Intoxication Withdrawal: No Any prior treatment program specific to substance use: No Have you been hit, kicked, punched, or otherwise hurt by someone within the past year? If so, by whom?: No Do you feel safe in your current relationship?: Yes Is there a partner from a previous relationship who is making you feel unsafe now?: No Are you made to feel afraid or neglected: No Advance Directives: No Advance Directives Information Provided: No Do you have thoughts of harming others: None Do you have a plan to hurt others: No Plan Recently lost weight without trying: No Eating poorly because of decreased appetite: No Nutrition Risks: No Nutritional Risk Patient : No : No Poor oral hygiene: No Meds Allergies Allergy/AdvReac Type Severity Reaction Status Date / Time No Known Allergies Allergy Verified 10/01/23 12:27 [No Known Allergies*] Active Medications: Current Medications Acetaminophen (Acetaminophen 325 Mg Tablet) 650 mg PO Q6H PRN PRN Reason: Pain, Mild (Pain Scale 1-3) Last Admin: 10/02/23 06:25 Dose: 650 mg Levothyroxine Sodium (Levothyroxine Sodium 175 Mcg Tablet) 175 mcg PO DAILY@0600 [facility] Last Admin: 10/02/23 06:18 Dose: 175 mcg Lisinopril (Lisinopril 5 Mg Tablet) 5 mg PO DAILY [facility]; Protocol Last Admin: 10/02/23 08:56 Dose: 5 mg Melatonin (Melatonin 3 Mg Tablet) 6 mg PO BEDTIME PRN PRN Reason: Insomnia Ondansetron HCl (Ondansetron Hcl 4 Mg/2 Ml Vial) 4 mg IVPUSH Q8H PRN PRN Reason: Nausea and Vomiting Sodium Chloride (0.9 % Sodium Chloride Flush 3 Ml Syringe) 3 ml IVFLUSH QSHIFT [facility] Last Admin: 10/02/23 08:56 Dose: 3 ml Vitamin D (Cholecalciferol (Vitamin D3) 25 Mcg Tablet) 125 mcg PO DAILY [facility] Last Admin: 10/02/23 08:56 Dose: 125 mcg Home Medications Medication Instructions Recorded Confirmed Last Taken Type cholecalciferol (vitamin D3) 125 125 mcg PO DAILY 10/01/23 10/01/23 10/01/23 History mcg (5,000 unit) tablet levothyroxine 175 mcg tablet 175 mcg PO DAILY 10/01/23 10/01/23 10/01/23 History lisinopril 5 mg tablet 5 mg PO DAILY 10/01/23 10/01/23 10/01/23 History Physical Exam 2 Vital Signs: Vital Signs: Last Vital Signs Temp 97.1 F 10/02/23 09:17 Pulse 73 10/02/23 09:17 Resp 20 10/02/23 09:17 BP 149/88 H 10/02/23 09:17 Pulse Ox 100 10/02/23 09:17 O2 Del Method Room Air 10/02/23 09:17 BMI result Body Mass Index 42.6 Neuro: Other: She is alert and awake with normal spontaneity of speech fluency comprehension and affect. Face is symmetrical. Visual ray are full. Pupils are round reactive. Extraocular muscles are intact. Visual ray are full. There is no pronator drift. [id number] testing revealed mild left sided ataxia. Deep tendon reflexes are trace to 1+ bilaterally with flexor plantars. [id number]-dz-[id number] testing is okay. He is able to get up and walk without significant difficulty. Speech is normal. Results Labs 10/02/23 05:04 10/02/23 05:04 Labs: Short CBC 10/01/23 10/02/23 Range/Units 12:55 05:04 WBC 6.6 7.3 (4.8-10.8) X10*3/uL Hgb 13.0 12.3 (12.0-16.0) g/dl Hct 39.8 37.8 (37.0-47.0) % Plt Count 243 227 (160-400) X10*3/uL BMP 10/01/23 10/02/23 12:55 05:04 Sodium 141 141 Potassium 3.6 3.7 Chloride 106 108 Carbon Dioxide 29 25 BUN 9 8 L Creatinine 0.84 0.77 Calcium 9.2 9.2 Cardiac Enzymes 10/01/23 Range/Units 12:55 Total Creatine Kinase 40 (26-140) U/L Liver Function 10/01/23 Range/Units 12:55 Total Bilirubin 0.6 (0.0-1.0) mg/dL AST 7 (5-31) U/L ALT 8 (0-31) U/L Alkaline Phosphatase 95 (39-117) U/L Albumin 4.1 (3.5-5.0) g/dL Noncontrast head CT did not reveal any significant abnormality per Assessment and Plan (1) Transverse myelitis: Status: Acute 47 years old woman with significant obesity presented with symptoms suggestive of spinal cord asymmetric process suggestive of non infectious transverse myelitis. My recommendation is to obtain MRI of cervical and thoracic spine with and without contrast. She would also require brain MRI with and without contrast as multiple sclerosis is part of the differential. The only definitive finding on examination was left arm ataxia, which suggested cerebellar brainstem pathology. Procedures Date of Service Date of Service: 10/02/23
[2023-10-02] MEDS: gadobutroL 10 ML VIAL IVPUSH (13:57)
[2023-10-03 03:31] VITALS: BP 142/70; PULSE 62; RESP 20; TEMP 36.4; O2SAT 97
[2023-10-03] MEDS: Levothyroxine Sodium 175 MCG TABLET PO (06:19)
[2023-10-03 08:00] VITALS: BP 153/87; PULSE 70; RESP 18; TEMP 36.4; O2SAT 99
[2023-10-03] MEDS: lisinopriL 5 MG TABLET PO (08:19)
[2023-10-03] MEDS: Cholecalciferol (Vitamin D3) 25 MCG TABLET 125 MCG PO (08:19)
[2023-10-03] MEDS: 0.9 % Sodium Chloride Flush 3 ML SYRINGE IVFLUSH ×3 (08:21→21:19)
--- NOTE | 2023-10-03 08:27 | MHC.CM.PN ---
PT REPORTS SHE LIVES WITH HER AND TWO CHILDREN, AGES 22 AND 17 AND TWO GRANDCHILDREN SHE IS FULLY INDEPENDENT, NO SERVICES, NO DME PT SAYS SHE HAS A BLANK HCP AT HOME AND WILL COMPLETE IT THERE PCP: VINH JOSEPH OBSERVATION NOTICE DELIVERED DCP: HOME NO SERVICES VIA PRIVATE TRANSPORT
--- NOTE | 2023-10-03 10:53 | MHC.CM.PN ---
PER MD ROUNDS, PT NOT CLEARED TO DC DCP REMAINS HOME WITH NO SERVICES VIA PRIVATE TRANSPORT
[2023-10-03 11:55] VITALS: BP 147/87; PULSE 75; RESP 18; TEMP 36.4; O2SAT 99
[2023-10-03] MEDS: gadobutroL 10 ML VIAL IVPUSH (13:41)
[2023-10-03 16:00] VITALS: BP 141/84; PULSE 66; RESP 20; TEMP 36.6; O2SAT 97
--- NOTE | 2023-10-03 16:30 | P.PNIM_ITS ---
Subjective Subjective Date of Service: 10/03/23 Interval History: No significant changes and paresthesias Review of Systems Denies chest pain Denies shortness of breath Denies nausea vomiting diarrhea Denies fever chills Physical Exam 2 Vital Signs: Vital Signs: Last Vital Signs Temp 97.8 F 10/03/23 16:00 Pulse 66 10/03/23 16:00 Resp 20 10/03/23 16:00 BP 141/84 H 10/03/23 16:00 Pulse Ox 97 10/03/23 16:00 O2 Del Method Room Air 10/03/23 16:00 BMI result Body Mass Index 42.6 Const: Other: Awake alert no acute distress Resp: Other: Clear to auscultation bilaterally no rales rhonchi wheezes Cardio: Other: No S4; positive S1-S2; no S3 murmurs rubs or gallops GI: Other: Soft nontender nondistended normoactive bowel sounds Extrem: Other: No edema bilaterally Objective Data Active Medications Acetaminophen (Acetaminophen 325 Mg Tablet) 650 mg PO Q6H PRN PRN Reason: Pain, Mild (Pain Scale 1-3) Last Admin: 10/02/23 19:53 Dose: 650 mg Documented By: SUDHAKAR Levothyroxine Sodium (Levothyroxine Sodium 175 Mcg Tablet) 175 mcg PO DAILY@0600 [facility] Last Admin: 10/03/23 06:19 Dose: 175 mcg Documented By: SUDHAKAR Lisinopril (Lisinopril 5 Mg Tablet) 5 mg PO DAILY [facility]; Protocol Last Admin: 10/03/23 08:19 Dose: 5 mg Documented By: LEANA Melatonin (Melatonin 3 Mg Tablet) 6 mg PO BEDTIME PRN PRN Reason: Insomnia Ondansetron HCl (Ondansetron Hcl 4 Mg/2 Ml Vial) 4 mg IVPUSH Q8H PRN PRN Reason: Nausea and Vomiting Sodium Chloride (0.9 % Sodium Chloride Flush 3 Ml Syringe) [facility] Last Admin: 10/03/23 08:21 Dose: 3 ml Documented By: LEANA Vitamin D (Cholecalciferol (Vitamin D3) 25 Mcg Tablet) 125 mcg PO DAILY [facility] Last Admin: 10/03/23 08:19 Dose: 125 mcg Documented By: LEANA Labs 10/02/23 05:04 10/02/23 05:04 Assessment and Plan (1) Paresthesia: Status: Acute Plan 47 pyear old female with history of hypothyroidism, htn, who id morbidly obese with BMI >42 to be observed for ascending paresthesias 1.Ascending symmetric paresthesias ; thoracic and cervical spine MRIs consistent with demyelinating plaques -will give methylprednisolone 1 g tonight and follow-up in a.m. -if improved will send home on prednisone taper to follow up with neuro as outpatient 2.HTN -acceptable control on current therapies -adjust as indicated SCPs Full code Requires ongoing hospitalization for IV Abbie awaits to treat likely multiple sclerosis Quality Stroke Does the patient have a stroke diagnosis?: No VTE Prior VTE?: No VTE Risk Level:: Medical - moderate - high VTE Device Contraindication: Treatment Not Indicated VTE Drug Contraindication: N/A - Med Ordered
[2023-10-03] MEDS: methylPREDNISolone Sod Succ 1,000 MG in 0.9 % Sodium Chloride 50 ML 66 MG IV (17:43)
[2023-10-03 20:00] VITALS: BP 141/72; PULSE 71; RESP 18; TEMP 36.6; O2SAT 96
[2023-10-04] VITALS: BP 152/91; PULSE 84; RESP 18; TEMP 36.5; O2SAT 96
[2023-10-04 03:37] VITALS: BP 159/76; PULSE 87; RESP 16; TEMP 36.5; O2SAT 97
[2023-10-04] MEDS: Levothyroxine Sodium 175 MCG TABLET PO (05:51)
[2023-10-04] MEDS: Acetaminophen 325 MG TABLET 650 MG PO (05:53)
--- NOTE | 2023-10-04 07:44 | PC.NURSE ---
Assumed care 20:30 (10/03) after pt was transferred to s3 from s4. See shift assessment and EMAR for full details. Handoff report given 06:45.
[2023-10-04 07:46] VITALS: BP 162/82; PULSE 74; RESP 20; TEMP 36.6; O2SAT 99
[2023-10-04] MEDS: 0.9 % Sodium Chloride Flush 3 ML SYRINGE IVFLUSH ×2 (09:24→15:23)
[2023-10-04] MEDS: Cholecalciferol (Vitamin D3) 25 MCG TABLET 125 MCG PO (09:25)
[2023-10-04] MEDS: lisinopriL 5 MG TABLET PO (09:25)
--- NOTE | 2023-10-04 09:46 | PM.NEUROCN ---
History of Present Illness Data of Consult Service Date: 10/04/23 Primary Care Provider: Bhavesh Figueroa PA-C [facility] Reason for consult: Multiple sclerosis 47 years old woman with new onset of numbness involving both legs trunk and left arm. With Solu-Medrol treatment she was feeling little bit better. Her imaging was reviewed. Review of Systems Review of Systems: No bowel bladder difficulties or eye symptoms PMFSH Past Medical History Medical History Morbid obesity Hypothyroidism HTN (hypertension) Social History Social History Alcohol intake: current Alcohol intake frequency: holidays/special occasions only Patient Tobacco Use Status: Never used Tobacco Smoked in Last 30 Days: No Patient Interested in Nicotine Replacement: No Patient Given Instructions on How to Stop Smoking: No Use of substances other than those prescribed or required for medical reasons: No Currently Displaying Signs/Symptoms of Drug Intoxication Withdrawal: No Any prior treatment program specific to substance use: No Have you been hit, kicked, punched, or otherwise hurt by someone within the past year? If so, by whom?: No Do you feel safe in your current relationship?: Yes Is there a partner from a previous relationship who is making you feel unsafe now?: No Are you made to feel afraid or neglected: No Advance Directives: No Advance Directives Information Provided: No Do you have thoughts of harming others: None Do you have a plan to hurt others: No Plan Recently lost weight without trying: No Eating poorly because of decreased appetite: No Nutrition Risks: No Nutritional Risk Patient : No : No Poor oral hygiene: No service: No Meds Allergies Allergy/AdvReac Type Severity Reaction Status Date / Time No Known Allergies Allergy Verified 10/01/23 12:27 [No Known Allergies*] Active Medications: Current Medications Acetaminophen (Acetaminophen 325 Mg Tablet) 650 mg PO Q6H PRN PRN Reason: Pain, Mild (Pain Scale 1-3) Last Admin: 10/04/23 05:53 Dose: 650 mg Methylprednisolone Sodium Succinate 1,000 mg/ Sodium Chloride 66 mls @ 66 mls/hr IV DAILY [facility] Stop: 10/05/23 09:59 Levothyroxine Sodium (Levothyroxine Sodium 175 Mcg Tablet) 175 mcg PO DAILY@[facility]00 [facility] Last Admin: 10/04/23 05:51 Dose: 175 mcg Lisinopril (Lisinopril 5 Mg Tablet) 5 mg PO DAILY [facility]; Protocol Last Admin: 10/04/23 09:25 Dose: 5 mg Melatonin (Melatonin 3 Mg Tablet) 6 mg PO BEDTIME PRN PRN Reason: Insomnia Ondansetron HCl (Ondansetron Hcl 4 Mg/2 Ml Vial) 4 mg IVPUSH Q8H PRN PRN Reason: Nausea and Vomiting Sodium Chloride (0.9 % Sodium Chloride Flush 3 Ml Syringe) 3 ml IVFLUSH QSHIFT [facility] Last Admin: 10/04/23 09:24 Dose: 3 ml Vitamin D (Cholecalciferol (Vitamin D3) 25 Mcg Tablet) 125 mcg PO DAILY [facility] Last Admin: 10/04/23 09:25 Dose: 125 mcg Home Medications Medication Instructions Recorded Confirmed Last Taken Type cholecalciferol (vitamin D3) 125 125 mcg PO DAILY 10/01/23 10/01/23 10/01/23 History mcg (5,000 unit) tablet levothyroxine 175 mcg tablet 175 mcg PO DAILY 10/01/23 10/01/23 10/01/23 History lisinopril 5 mg tablet 5 mg PO DAILY 10/01/23 10/01/23 10/01/23 History Physical Exam Vital Signs: Vital Signs: Last Vital Signs Temp 97.9 F 10/04/23 07:46 Pulse 74 10/04/23 07:46 Resp 20 10/04/23 07:46 BP 162/82 H 10/04/23 07:46 Pulse Ox 99 10/04/23 07:46 O2 Del Method Room Air 10/04/23 07:46 BMI result Body Mass Index 42.6 Neuro: Other: No significant change Results Labs 10/02/23 05:04 10/02/23 05:04 Labs: MRI of brain revealed at least 2 lesions suggestive of demyelinating disease. There is a larger distinct lesion in upper cervical spine and dorsal aspect with mild enhancement. Another nonenhancing lesion is noted in upper Thoracic spinal cord. Assessment and Plan (1) Relapsing remitting multiple sclerosis: Status: Acute 47 years old woman with 1st clinical syndrome of multiple sclerosis presenting with symptoms suggesting cervical spine lesion. Corresponding to that she has an acute enhancing lesion in upper cervical dorsal aspect. Imaging also revealed a nonenhancing upper thoracic cord lesion and couple of brain lesions. Overall, her presentation satisfies med Carlos criteria for multiple sclerosis with lesions in time and space. I like to have spinal fluid analyze especially for anti neuromyelitis optica antibodies but unfortunately her LP was unsuccessful. If she stays until Friday, my suggestion is to obtain lumbar puncture. If not this should be arranged as an outpatient. I had detail conversation with her explaining to her what she suffered from. Her sister suffered from multiple sclerosis and she was aware of this condition. My recommendation was to start her on immunomodulating therapy as soon as possible. She was advised to discuss this matter with a primary care physician as soon as possible to make further decisions. If she preferred to continue with our office, she can make a call to make a follow-up appointment. Procedures Date of Service Date of Service: 10/04/23
[2023-10-04] MEDS: methylPREDNISolone Sod Succ 1,000 MG in 0.9 % Sodium Chloride 50 ML 66 MG IV (09:57)
[2023-10-04] MEDS: Acetaminophen 325 MG TABLET 975 MG PO (14:05)
--- NOTE | 2023-10-04 14:06 | HO.PM.IMPN ---
Subjective Subjective Date of Service: 10/04/23 Interval History: Minimal improvement with steroids. Spirits good Review of Systems Denies chest pain Denies shortness of breath Denies nausea vomiting diarrhea Denies fever chills Physical Exam Vital Signs: Vital Signs: Last Vital Signs Temp 97.9 F 10/04/23 07:46 Pulse 74 10/04/23 07:46 Resp 20 10/04/23 07:46 BP 162/82 H 10/04/23 07:46 Pulse Ox 99 10/04/23 07:46 O2 Del Method Room Air 10/04/23 07:46 BMI result Body Mass Index 42.6 Const: Other: Awake alert no acute distress Resp: Other: Clear to auscultation bilaterally no rales rhonchi wheezes Cardio: Other: No S4; positive S1-S2; no S3 murmurs rubs or gallops GI: Other: Soft nontender nondistended normoactive bowel sounds Extrem: Other: No edema bilaterally Objective Data Active Medications Acetaminophen (Acetaminophen 325 Mg Tablet) 975 mg PO Q6H PRN PRN Reason: Pain, Mild (Pain Scale 1-3) Methylprednisolone Sodium Succinate 1,000 mg/ Sodium Chloride 66 mls @ 66 mls/hr IV DAILY [facility] Stop: 10/05/23 09:59 Last Infusion: 10/04/23 11:00 Dose: Infused Documented By: JANINE Levothyroxine Sodium (Levothyroxine Sodium 175 Mcg Tablet) 175 mcg PO DAILY@0600 [facility] Last Admin: 10/04/23 05:51 Dose: 175 mcg Documented By: RAYSHAWN Lisinopril (Lisinopril 5 Mg Tablet) 5 mg PO DAILY [facility]; Protocol Last Admin: 10/04/23 09:25 Dose: 5 mg Documented By: JANINE Melatonin (Melatonin 3 Mg Tablet) 6 mg PO BEDTIME PRN PRN Reason: Insomnia Ondansetron HCl (Ondansetron Hcl 4 Mg/2 Ml Vial) 4 mg IVPUSH Q8H PRN PRN Reason: Nausea and Vomiting Sodium Chloride (0.9 % Sodium Chloride Flush 3 Ml Syringe) 3 ml IVFLUSH QSHIFT [facility] Last Admin: 10/04/23 09:24 Dose: 3 ml Documented By: JANINE Vitamin D (Cholecalciferol (Vitamin D3) 25 Mcg Tablet) 125 mcg PO DAILY [facility] Last Admin: 10/04/23 09:25 Dose: 125 mcg Documented By: JANINE Labs 10/02/23 05:04 10/02/23 05:04 Assessment and Plan (1) Relapsing remitting multiple sclerosis: Status: Acute Plan 47 pyear old female with history of hypothyroidism, htn, who id morbidly obese with BMI >42 to be observed for ascending paresthesias 1.Ascending symmetric paresthesias ; thoracic and cervical spine MRIs consistent with demyelinating plaques -will give methylprednisolone 1 g daily for a total of 3 days -follow-up as outpatient with Dr. Franklin 2.HTN -acceptable control on current therapies -adjust as indicated SCPs Full code Requires ongoing hospitalization for IV steroids to treat likely multiple sclerosis Quality Stroke Does the patient have a stroke diagnosis?: No VTE Prior VTE?: No VTE Risk Level:: Medical - moderate - high VTE Device Contraindication: Treatment Not Indicated VTE Drug Contraindication: N/A - Med Ordered
[2023-10-04 15:10] VITALS: BP 135/75; PULSE 86; RESP 20; TEMP 37.1; O2SAT 99
[2023-10-04 19:21] VITALS: BP 155/77; PULSE 80; RESP 18; TEMP 36.3; O2SAT 97
[2023-10-05] VITALS: BP 138/72; PULSE 78; RESP 18; TEMP 36.3; O2SAT 95
[2023-10-05] MEDS: 0.9 % Sodium Chloride Flush 3 ML SYRINGE IVFLUSH ×2 (00:03→09:30)
[2023-10-05 03:26] VITALS: BP 141/76; PULSE 74; RESP 18; TEMP 36.6; O2SAT 97
[2023-10-05] MEDS: Levothyroxine Sodium 175 MCG TABLET PO (05:35)
--- NOTE | 2023-10-05 06:56 | PC.NURSE ---
Assumed care of patient at 19:15 (10/04). Pt is A&Ox4. Continues with numbness/tingling r/t new MS in her BLE and left hand, though pt states she feels this is improving since starting her steroids. Tolerating diet w/o n/v. Breathing is even and unlabored without distress on RA. Voids cyu and ambulates independently in bathroom, steady. Safety measures in place. Denies pain, denies headache. Handoff report given 06:45.
[2023-10-05 08:00] VITALS: BP 146/73; PULSE 66; RESP 18; TEMP 36.6; O2SAT 97
[2023-10-05] MEDS: lisinopriL 5 MG TABLET PO (09:30)
[2023-10-05] MEDS: Cholecalciferol (Vitamin D3) 25 MCG TABLET 125 MCG PO (09:30)
[2023-10-05] MEDS: methylPREDNISolone Sod Succ 1,000 MG in 0.9 % Sodium Chloride 50 ML 66 MG IV (10:21)
--- NOTE | 2023-10-05 11:55 | PM.DS ---
DS: Providers Provider Date of Service: 10/05/23 Date of admission: 10/01/23 19:21 Date of discharge: 10/05/23 Primary care physician: Bhavesh Figueroa PA-C Consults: 10/01/23 19:26 Consult to Neurology Routine Consulting Provider: [facility] Reason for consultation: lower extremity numbness DS: Diagnosis Discharge Diagnosis (1) Relapsing remitting multiple sclerosis: Status: Acute DS: Summary Hospital Course Hospital Course: 47 pyear old female with history of hypothyroidism, htn, who id morbidly obese with BMI >42 presented to the ED earlier today for evaluation of numbness and tingling that started in her toes about 4 days ago after a [place] class. Since then the paresthesias have beens ascending up the legs bilaterally now on the abdomen. Earlier she began experiencing the sensation in the LUE. Paresthesias have otherwise been symmetric. She report chronic intermittent R-sided paraspinal low back pain. Reports having paresthesias in the LLE several years ago that responded well to prednisone. Denies any known injury. No bowel/bladder dysfunction. No weakness. On arrival, VSS. Hematology studies unremarkable. Renal function/lytes normal. CRP WNL. Total CK WNL. TSH WNL. Head CT unremarkable. Several attempts were made at LP but were unsuccessful. She did have COVID-19 booster about 2 months ago but no other recent vaccines. Denies any recent illness/URI. Case discussed with neurology recommending admission for further work up. [facility] Patient admitted to general medical floor. Seen by Neurology who recommended a brain MRI along with cervical and thoracic spine MRI. Brain in both cervical and thoracic spine demonstrated changes consistent with demyelinating plaques. She was given Solu-Medrol 1 g IV daily x3 doses at neurology's request. She will be discharged today to follow-up with neurology for relapsing remitting multiple sclerosis Time Attestation Discharge coordination time: Greater than 30 minutes Quality: Safe Use of Opioids Does Pt have an Active Cancer Diagnosis on the Problem List?: No Quality: Stroke Does the patient have a stroke diagnosis?: No Physical Exam Vital Signs: Vital Signs: Last Vital Signs Temp 97.8 F 10/05/23 08:00 Pulse 66 10/05/23 08:00 Resp 18 10/05/23 08:00 BP 146/73 H 10/05/23 08:00 Pulse Ox 97 10/05/23 08:00 O2 Del Method Room Air 10/05/23 08:00 BMI result Body Mass Index 42.6 Const: Other: Awake alert no acute distress Resp: Other: Clear to auscultation bilaterally no rales rhonchi wheezes Cardio: Other: No S4; positive S1-S2; no S3 murmurs rubs or gallops GI: Other: Soft nontender nondistended normoactive bowel sounds Extrem: Other: No edema bilaterally Discharge Plan Discharge Anticipated Discharge Date/Time: 10/05/23 11:51 Patient Disposition: Home, Self-Care Discharge Diagnosis: Relapsing remitting multiple sclerosis Referrals: Bhavesh Mena, PABernardinoC [Primary Care Provider] - 1 Week Discharge Medications: Continued levothyroxine 175 mcg tablet 175 mcg PO DAILY lisinopril 5 mg tablet 5 mg PO DAILY cholecalciferol (vitamin D3) 125 mcg (5,000 unit) Tablet 125 mcg PO DAILY Discharge Orders: Discharge Order (Routine); Ordered 10/05/23 Ordered By: Reji Pace Diet: Advance to usual diet Activity on Discharge: As tolerated Stand Alone Forms: Patient Portal Discharge page Care Plan Goals: You need to follow-up with Dr. Franklin in his office. His phone number is [phone]. His office should call you with appointment call if you do not receive it by the end of the day Friday Health Concerns: Follow-up with your PCP next available appointment Plan of Treatment: Resume all pre-hospital medication Assessment: See discharge summary
--- NOTE | 2023-10-05 12:04 | MHC.CM.PN ---
EMR reviewed. Patient is medically cleared for dc home self care. Will follow up with neurology outpatient. will transport home. RN aware.
== END 2023-10-05 12:37 | disposition home or self-care (01) | DRG 43 ==
LOC: HO.ED 21:33 → HO.EDOVER 21:53 → HO.IMC 10-02 07:27 → HO.EDOVER 10-02 11:12 → HO.S3 10-03 19:26
PROVIDERS: Physician Assistant; Physician Assistant Medical; Admitting Provider Student in an Organized Health Care Education/Training Program; Emergency Provider Emergency Medicine Emergency Medical Services; PCP Student in an Organized Health Care Education/Training Program; Visit Provider Hospitalist
DX: G35 Multiple sclerosis (principal); E03.9 Hypothyroidism, unspecified; I10 Essential (primary) hypertension; E66.01 Morbid (severe) obesity due to excess calories; Z68.41 Body mass index [BMI] 40.0-44.9, adult; Z79.890 Hormone replacement therapy; Z79.899 Other long term (current) drug therapy
CPT/HCPCS: 36415; 70450; 70553; 72156; 72157; 80048; 80053; 82550; 82607; 82746; 83690; 83735; 84443; 85025; 85610; 85652; 85730; 86140; 99285; A9585; J2930

== ENCOUNTER → 2023-10-01 16:35 | Outpatient (BNV) | payer MEDICAID, SELFPAY | PROVIDERS: Emergency Provider Emergency Medicine Emergency Medical Services; PCP Student in an Organized Health Care Education/Training Program; Visit Provider Physician Assistant | DX: G35 Multiple sclerosis (principal) | CPT/HCPCS: 99223; 99232; 99233; 99239 ==

== ENCOUNTER → 2023-10-01 19:21 | Outpatient (BNV) | payer MEDICAID, SELFPAY | PROVIDERS: Admitting Provider Student in an Organized Health Care Education/Training Program; Emergency Provider Emergency Medicine Emergency Medical Services; PCP Student in an Organized Health Care Education/Training Program; Visit Provider Psychiatry & Neurology Neurology | DX: G35 Multiple sclerosis (principal) | CPT/HCPCS: 99222; 99232 ==